=== PATIENT | male | born 1945 | race Caucasian/White ===

== ENCOUNTER 2016-08-28 12:30 | Observation (INO) | payer MEDICARE ==
[2016-08-28] MEDS ORDERED: NS 0.9% 1000 ML* 1,000 ML IV ONE (13:20)
[2016-08-28 13:42] LABS: Hematocrit 40 % (42-52); Hemoglobin 13.2 g/dl (14.0-18.0); Mean Corpuscular HGB Conc 33 g/dl (31-36); Mean Corpuscular Hemoglobin 30 pg (27-31); Mean Corpuscular Volume 90 fL (80-94); Mean Platelet Volume 8 um3 (7.4-10.4); Red Blood Count 4.43 10^6/ul (4.0-5.4); Red Cell Distribution Width 14 % (10.5-15); White Blood Count 7.1 10^3/ul (3.5-10.8)
--- NOTE | 2016-08-28 13:59 | RAD ---
Indication: Pneumonia. Single frontal view of the chest performed at 1350 hours was reviewed. Comparison is made with previous exam dated June 09, 2014. No mediastinal shift is noted. Heart is of normal size and configuration. Lung salmon appear clear. IMPRESSION: NO ACTIVE CARDIOPULMONARY DISEASE IS NOTED.
[2016-08-28 14:01] LABS: Albumin 4.1 g/dL (3.2-5.2); BUN/Creatinine Ratio 8.5 (8-20); Calcium 10.8 mg/dL (8.6-10.3); EGFR African American 78.5 (>60); HDL Cholesterol 38.1 mg/dL; Total Bilirubin 0.5 mg/dL (0.2-1.0); Total Protein 7.1 g/dL (6.4-8.9)
[2016-08-28 14:03] LABS: Troponin I 0.01 ng/mL (<0.04)
[2016-08-28 14:06] LABS: Potassium 3.9 mmol/L (3.5-5.0)
[2016-08-28] MEDS ORDERED: Iohexol 350* (CONTRAST) 500 ML MDV IV ONE (14:06)
--- NOTE | 2016-08-28 14:48 | RAD ---
Indication: Right-sided weakness and headaches. CT of the brain was performed without IV contrast. Comparison is made with previous exam dated June 09, 2014. Ventricular structures are midline. No midline shift is noted. Central and cortical atrophy is noted. Periventricular lucency consistent with chronic ischemic White matter change is noted. Mastoid air cells and paranasal sinuses are otherwise unremarkable. IMPRESSION: Chronic ischemic White matter change without change since June 09, 2014. No intracranial mass or hemorrhage is noted.
--- NOTE | 2016-08-28 15:06 | RAD ---
Indication: Right-sided weakness and headache. CTA of the neck and head was performed after IV contrast administration. A total of Administered 79.9 ml of OMNIPAQUE 350 mgi/ml was given intravenously. Coronal and sagittal reconstructed images were obtained. Atherosclerotic aorta is noted. A tortuous brachiocephalic artery is noted. The right common carotid artery is otherwise unremarkable. The left common carotid artery demonstrates no definite stenosis although evaluation is limited. The study was performed with a left-sided IV contrast to hospital protocol. Bilaterally the common carotid arteries demonstrates no intimal wall thickening. Plaque is noted at the carotid artery bifurcations bilaterally. Scattered calcifications are noted in the right internal carotid artery. The left internal carotid artery demonstrates a 50% stenosis just distal to the bifurcation. The vertebral arteries are otherwise unremarkable. The appear to be symmetric in size. The origins of the vertebral arteries are grossly unremarkable. The intracavernous portion of the internal carotid artery demonstrates mild atherosclerosis. The supracavernous portions of the internal carotid arteries demonstrate no significant stenosis. Normal bifurcation of both internal carotid arteries are noted with normal A1 and M1 segments of the anterior and middle cerebral arteries respectively. No branch occlusion is noted. The vertebral arteries, basilar artery and posterior cerebral arteries demonstrates no evidence of aneurysmal dilatation or branch occlusion. Scattered lymph nodes are noted. No focal masses are identified in the soft tissues of the neck. IMPRESSION: PLAQUE IS NOTED IN THE ORIGINS OF BOTH INTERNAL CAROTID ARTERIES. JUST DISTAL TO THE ORIGIN OF THE LEFT INTERNAL CAROTID ARTERY IS SOFT PLAQUE WITH APPROXIMATELY 50% STENOSIS. NO EVIDENCE OF BRANCH OCCLUSION OR ANEURYSMAL DILATATION IS NOTED. NO EVIDENCE OF CAROTID ARTERY DISSECTION IS NOTED. ORIGINS OF THE GREAT VESSELS ARE LIMITED IN EVALUATION DUE TO LEFT SIDED INTRAVENOUS INJECTION.
[2016-08-28 15:11] LABS: Urine Bilirubin Negative (Negative); Urine Glucose Negative (Negative); Urine Nitrite Negative (Negative)
--- NOTE | 2016-08-28 15:47 | ED ---
Miko Arriaga Michael, scribed for Carlos Iqbal MD on 08/28/16 at 1327 . Neurological HPI - HPI Summary HPI Summary: 71 y/o male comes to the ED presenting with RLE weakness that started this afternoon at 1215. The pt reports that he was dragging his RLE while walking up and down stairs today. His was bedside and states that the episode lasted for 5-10 minutes, and the pt's son notes he had bilat LE tremors during the weakness episode. The RLE weakness was spontaneous resolved prior arriving to the ED. The pt denies SOB, CP, palpitations, slurred speech, and visual changes. The PMHx is significant for multiple hemorrhagic strokes, sz, and HTN. The last stroke was 10 years ago. The pt has no deficits from the strokes. - History of Current Complaint Chief Complaint: EDWeakness Stated Complaint: STROKE LIKE SYMPTOMS Time Seen by Provider: 08/28/16 12:58 Hx Obtained From: Patient, Medical Records Onset/Duration: Sudden Onset, Started hours ago Timing: Constant Onset Severity: Moderate Current Severity: None Pain Intensity: 0 Pain Scale Used: 0-10 Numeric Character: Motor Weakness Aggravating: Nothing Alleviating: Spontanious Resolution Associated Signs and Symptoms: Positive: Negative - SOB. visual changes., Weakness. Negative: Impaired Speech, Chest Pain, Palpitations - Allergy/Home Medications Allergies/Adverse Reactions: Allergies Allergy/AdvReac Type Severity Reaction Status Date / Time No Known Allergies Allergy Verified 06/09/14 06:42 PMH/Surg Hx/FS Hx/Imm Hx Endocrine/Hematology History: Denies: Hx Anticoagulant Therapy, Hx Diabetes, Hx Thyroid Disease Comment Only: Hx Blood Disorders - AMYLOIDOSIS Cardiovascular History: Reports: Hx Hypertension Denies: Hx Pacemaker/ICD Respiratory History: Denies: Hx Asthma, Hx Chronic Obstructive Pulmonary Disease (COPD) History: Reports: Hx Benign Prostatic Hyperplasia - HAS TROUBLE INNITIATING, AND HAS ISSUES WITH DRIBBLING Denies: Hx Renal Disease Comment Only: Other Problems/Disorders - RECENTLY BEEN IN TO SEE DR SOMMER. Sensory History: Reports: Hx Contacts or Glasses - READING, NOT WITH PT. Opthamlomology History: Reports: Hx Contacts or Glasses - READING, NOT WITH PT. Neurological History: Reports: Hx CVA, Hx Seizures Denies: Hx Dementia Psychiatric History: Denies: Hx Substance Abuse Comment Only: Hx Anxiety - PT APPEARS SOME WHAT ANXIOUS ON ADMISSION, ADMITS TO STRESSORS Infectious Disease History: No Infectious Disease History: Denies: Hx Hepatitis, Hx Human Immunodeficiency Virus (HIV), Traveled Outside the [place] in Last 30 Days - Family History Known Family History: Positive: Hypertension, Diabetes, Other - Colon Cancer - Social History Occupation: Retired Lives: With Family Alcohol Use: None Substance Use Type: Reports: None Smoking Status (MU): Never Smoked Tobacco Review of Systems Negative: Fever Negative: Blurred Vision, Diplopia Negative: Palpitations, Chest Pain Negative: Shortness Of Breath Positive: Other - bilat LE tremors Positive: Weakness - RLE. Negative: Slurred Speech All Other Systems Reviewed And Are Negative: Yes Physical Exam - Summary Physical Exam Summary: The patient is well-nourished in no acute distress and in no acute pain. The skin is warm and dry and skin color reflects adequate perfusion with good turgor. HEENT: The head is normocephalic and atraumatic. The pupils are equal and reactive. The conjunctivae are clear and without drainage. Nares are patent and without drainage. Mouth reveals moist mucous membranes and the throat is without erythema and exudate. The external ears are intact. The ear canals are patent and without drainage. The tympanic membranes are intact. Neck is supple with full range of motion and non-tender. There are no carotid bruits. There is no neck vein distension. Respiratory: Chest is non-tender. Lungs are clear to auscultation and breath sounds are symmetrical and equal. Cardiovascular: Hear is regular rate and rhythm. There is no murmur or rub auscultated. There is no peripheral edema and pulses are symmetrical and equal. Abdomen: The abdomen is soft and non-tender. There are normal bowel sounds heard in all four quadrants and there is no organomegaly palpated. Musculoskeletal: There is no back pain noted. Extremities are non-tender with full range of motion. There is good capillary refill. There is no peripheral edema or calf tenderness elicited. Neurological: Patient is alert and not oriented to time. The patient has symmetrical motor strength in all four extremities. Cranial nerves are grossly intact. Deep tendon reflexes are symmetrical and equal in all four extremities. Tongue is midline and there is no facial droop. Negative pronator drift in upper and lower extremities. No noted weakness is appreciated and negative babinski. The patient had difficulty following commands. He had no visual field loss or slurred speech. Psychiatric: The patient has an appropriate affect and does not exhibit any anxiety or depression. Triage Information Reviewed: Yes Vital Signs On Initial Exam: Initial Vitals Temp Pulse Resp BP Pulse Ox 97.7 F 61 17 136/77 97 08/28/16 12:45 08/28/16 12:45 08/28/16 12:45 08/28/16 12:45 08/28/16 12:45 Vital Signs Reviewed: Yes Diagnostics - Vital Signs Vital Signs Temp Pulse Resp BP Pulse Ox 08/28/16 12:45 97.7 F 61 17 136/77 97 - Laboratory Lab Results: Lab Results 08/28/16 08/28/16 08/28/16 Range/Units 13:30 13:30 13:30 WBC 7.1 (3.5-10.8) 10^3/ul RBC 4.43 (4.0-5.4) 10^6/ul Hgb 13.2 L (14.0-18.0) g/dl Hct 40 L (42-52) % MCV 90 (80-94) fL MCH 30 (27-31) pg MCHC 33 (31-36) g/dl RDW 14 (10.5-15) % Plt Count 287 (150-450) 10^3/ul MPV 8 (7.4-10.4) um3 Neut % (Auto) 60.1 (38-83) % Lymph % (Auto) 28.9 (25-47) % [place] % (Auto) 6.9 (1-9) % Eos % (Auto) 3.0 (0-6) % Baso % (Auto) 1.1 (0-2) % Absolute Neuts (auto) 4.3 (1.5-7.7) 10^3/ul Absolute Lymphs (auto) 2.1 (1.0-4.8) 10^3/ul Absolute Monos (auto) 0.5 (0-0.8) 10^3/ul Absolute Eos (auto) 0.2 (0-0.6) 10^3/ul Absolute Basos (auto) 0.1 (0-0.2) 10^3/ul Absolute Nucleated RBC 0 10^3/ul Nucleated RBC % 0 INR (Anticoag Therapy) 0.93 (0.89-1.11) Sodium 137 (133-145) mmol/L Potassium 3.9 (3.5-5.0) mmol/L Chloride 101 (101-111) mmol/L Carbon Dioxide 32 (22-32) mmol/L Anion Gap 4 (2-11) mmol/L BUN 10 (6-24) mg/dL Creatinine 1.18 H (0.67-1.17) mg/dL Est GFR ( Amer) 78.5 (>60) Est GFR (Non-Af Amer) 61.0 (>60) BUN/Creatinine Ratio 8.5 (8-20) Glucose 94 (70-100) mg/dL Lactic Acid (0.5-2.0) mmol/L Calcium 10.8 H (8.6-10.3) mg/dL Total Bilirubin 0.50 (0.2-1.0) mg/dL AST 20 (13-39) U/L ALT 12 (7-52) U/L Alkaline Phosphatase 55 (34-104) U/L Troponin I 0.01 (<0.04) ng/mL Total Protein 7.1 (6.4-8.9) g/dL Albumin 4.1 (3.2-5.2) g/dL Globulin 3.0 (2-4) g/dL Albumin/Globulin Ratio 1.4 (1-3) Triglycerides 214 mg/dL Cholesterol 213 mg/dL LDL Cholesterol 132 mg/dL HDL Cholesterol 38.1 mg/dL Urine Color Urine Appearance Urine pH (5-9) Ur Specific [place] (1.010-1.030) Urine Protein (Negative) Urine Ketones (Negative) Urine Blood (Negative) Urine Nitrate (Negative) Urine Bilirubin (Negative) Urine Urobilinogen (Negative) Ur Leukocyte Esterase (Negative) Urine Glucose (Negative) 08/28/16 08/28/16 Range/Units 13:30 14:50 WBC (3.5-10.8) 10^3/ul RBC (4.0-5.4) 10^6/ul Hgb (14.0-18.0) g/dl Hct (42-52) % MCV (80-94) fL MCH (27-31) pg MCHC (31-36) g/dl RDW (10.5-15) % Plt Count (150-450) 10^3/ul MPV (7.4-10.4) um3 Neut % (Auto) (38-83) % Lymph % (Auto) (25-47) % [place] % (Auto) (1-9) % Eos % (Auto) (0-6) % Baso % (Auto) (0-2) % Absolute Neuts (auto) (1.5-7.7) 10^3/ul Absolute Lymphs (auto) (1.0-4.8) 10^3/ul Absolute Monos (auto) (0-0.8) 10^3/ul Absolute Eos (auto) (0-0.6) 10^3/ul Absolute Basos (auto) (0-0.2) 10^3/ul Absolute Nucleated RBC 10^3/ul Nucleated RBC % INR (Anticoag Therapy) (0.89-1.11) Sodium (133-145) mmol/L Potassium (3.5-5.0) mmol/L Chloride (101-111) mmol/L Carbon Dioxide (22-32) mmol/L Anion Gap (2-11) mmol/L BUN (6-24) mg/dL Creatinine (0.67-1.17) mg/dL Est GFR ( Amer) (>60) Est GFR (Non-Af Amer) (>60) BUN/Creatinine Ratio (8-20) Glucose (70-100) mg/dL Lactic Acid 1.3 (0.5-2.0) mmol/L Calcium (8.6-10.3) mg/dL Total Bilirubin (0.2-1.0) mg/dL AST (13-39) U/L ALT (7-52) U/L Alkaline Phosphatase (34-104) U/L Troponin I (<0.04) ng/mL Total Protein (6.4-8.9) g/dL Albumin (3.2-5.2) g/dL Globulin (2-4) g/dL Albumin/Globulin Ratio (1-3) Triglycerides mg/dL Cholesterol mg/dL LDL Cholesterol mg/dL HDL Cholesterol mg/dL Urine Color Yellow Urine Appearance Cloudy Urine pH 7.0 (5-9) Ur Specific [place] 1.033 H (1.010-1.030) Urine Protein Negative (Negative) Urine Ketones Negative (Negative) Urine Blood Negative (Negative) Urine Nitrate Negative (Negative) Urine Bilirubin Negative (Negative) Urine Urobilinogen Negative (Negative) Ur Leukocyte Esterase Negative (Negative) Urine Glucose Negative (Negative) Result Diagrams: 08/28/16 13:30 08/28/16 13:30 Lab Statement: Any lab studies that have been ordered have been reviewed, and results considered in the medical decision making process. - Radiology CXR Xray Interpretation: No Acute Changes Radiology Interpretation Completed By: Radiologist - CT Brain CT CT Interpretation: Positive (See Comments) - Chronic ischemic White matter change without change since June 09, 2014. No intracranial mass or hemorrhage is noted. CT Interpretation Completed By: Radiologist CTA Head CT Interpretation: Positive (See Comments) - PLAQUE IS NOTED IN THE ORIGINS OF BOTH INTERNAL CAROTID ARTERIES. JUST DISTAL TO THE ORIGIN OF THE LEFT INTERNAL CAROTID ARTERY IS SOFT PLAQUE WITH APPROXIMATELY 50% STENOSIS. NO EVIDENCE OF BRANCH OCCLUSION OR ANEURYSMAL DILATATION IS NOTED. NO EVIDENCE OF CAROTID ARTERY DISSECTION IS NOTED. ORIGINS OF THE GREAT VESSELS ARE LIMITED IN EVALUATION DUE TO LEFT SIDED INTRAVENOUS INJECTION CT Interpretation Completed By: Radiologist - EKG EK Cardiac Rate: Bradycardia EKG Interpretation: non specific st changes with artifact. no a-fib EK Cardiac Rate: Bradycardia - 58 bpm EKG Interpretation: non-specific ST changes. no a-fib. NIH Scale - NIH Scale Level of Consciousness: Alert/Keenly Responsive Ask Patient the Month and His/Her Age: [age] Correct/Not Aphasic Ask Pt to Open/Close Eyes and Bingo Attendant/Release Non-Paretic Hand: Both Correctly Best Gaze (Only Horizontal Eye Movement): Normal Visual Field Testing: No Visual Loss Facial Paresis-Pt to Smile & Close Eyes or Grimace Symmetry: Normal/Symmetrical Motor Function - Right Arm: No Drift-Holds 10 Seconds Motor Function - Left Arm: No Drift-Holds 10 Seconds Motor Function - Right Leg: No Drift-Holds 10 Seconds Motor Function - Left Leg: No Drift-Holds 10 Seconds Limb Ataxia-Must be out of Proportion to Weakness Present: Absent Sensory (Use Pinprick to Test Arms/Legs/Trunk/Face): Normal Best Language (Describe Picture, Name Items): No Aphasia Dysarthria (Read Several Words): Normal Extinction and Inattention: No Abnormality Total Score: 1 Re-Evaluation - Re-Evaluation 1st Re-Evaluation Time: 13:32 Change: Unchanged Comment: consulted with patient about course of treatment Course/Dx - Course Course Of Treatment: consulted Dr. Jara (Neurology) at 1328-Dr. Jara wants CTA Head and Brain CT. The pt will be admitted for observation unless imaging results dictate otherwise. Spoke with Dr. Le (Hospitalist) 1430-pt will be accepted as an admission and dx with TIA. - Differential Dx Differential Diagnoses Neuro: Positive: Cerebrovascular Accident, Coronary Artery Disease, Dysrhythmia, Hypoglycemia, Metabolic Abnormality, Transient Ischemic Attack, Other - hemmorhagic CVA - Diagnoses Provider Diagnoses: TIA (transient ischemic attack) - Physician Notifications Instructed by Provider To: Admit As Observation Discharge - Discharge Plan Condition: Stable Disposition: ADMITTED TO [facility] Discharge Disposition Comment: Dr. Le accepts the pt as an admission Referrals: Jayce Decker MD [Primary Care Provider] - The documentation as recorded by the Miko calderon Michael accurately reflects the service I personally performed and the decisions made by me, Carlos Iqbal MD.
[2016-08-28] MEDS ORDERED: busPIRone TAB* 10 MG PO SCH (18:00)
--- NOTE | 2016-08-28 19:29 | CONS ---
CC: Dr. Jayce Decker; Dr. Patton NEUROLOGY CONSULT REPORT: DATE OF CONSULT: 08/28/16 PRIMARY CARE PHYSICIAN: Dr. Jayce Decker. NEUROLOGIST: Dr. Patton. REQUESTING PHYSICIANS: Dr. Iqbal and Dr. Webster. REASON FOR CONSULT: Possible TIA. HISTORY OF PRESENT ILLNESS: The patient is a 71-year-old right-handed male, who about an hour before presentation to the emergency room was noted by his family that while walking he drags his left leg and also tilted towards the left side while walking. This lasted for about half an hour and by the time he arrived at the ED, the symptoms were resolved. The patient seems have been sustaining a cognitive function decline specially since his intraparenchymal hemorrhages (as stated below in PMH) in 2011. He also reports that his left visual field has been affected by his intraparenchymal hemorrhages. He has been under care of Dr. Patton who had a suspicion for amyloid angiopathy and seems for that reason was taken off antiplatelets by Dr. Patton. He has been on Aricept probably in the past 3 years. PAST MEDICAL HISTORY: 1. History of three episodes of intraparenchymal hemorrhage; first one in 2002 complicated by partial seizures with secondary generalization, the next one in August 2011 in the left occipital region, and the third one in May 2012 with again left occipital hemorrhage. 2. Partial seizure with secondary generalization. The last generalized seizure was about 3 years ago and he is currently well controlled on brand name of Lamictal. 3. Hyperlipidemia. 4. Hypertension. 5. Renal stone. PAST SURGICAL HISTORY: None. MEDICATIONS: Include: 1. Lamictal, brand name, 200 mg p.o. b.i.d. 2. BuSpar 10 mg q.a.m. and 5 mg q.p.m. 3. Dyazide 1 capsule 37.5/25 mg p.o. daily. 4. Metoprolol 50 mg p.o. daily. 5. Aricept 10 mg p.o. daily. 6. Vitamin D 1000 units p.o. daily. ALLERGIES: No known drug allergies. FAMILY HISTORY: His father had a history of CO at age 75. Paternal grandmother had a history of stroke at age 84. SOCIAL HISTORY: He does not smoke or drink alcohol. 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 REVIEW OF SYSTEMS: Complete review of systems was performed and other than what mentioned above is negative. PHYSICAL EXAM: Blood pressure 143/72, pulse rate 61, respiratory rate 20, and O2 sat 97% on room air. The patient is awake, alert, and oriented to year but not month (he says it is August) and not to the date, but he knows the day of the week. He is able to name the months of the year forward, but in naming them backwards he can go up to the middle and then has frequent mistakes. The patient sometimes has difficulty in following commands. His speech is fluent, but in naming he has occasionally paraphasic errors. Cranial Nerves: The patient reports visual field deficit as a result of previous hemorrhagic strokes, but currently on exam no clear visual field cut was detected by confrontation. Pupils are symmetric and reactive to light. Extraocular movements are intact. Face is symmetric. V1 to V3 is intact to light touch and pinprick. Strength is 5/5 throughout. His sensation is decreased to pinprick in the right upper and lower extremities which is chronic. [id number] shows slight action tremor but no dysmetria. Rapid alternative movements are intact. Babinski is negative bilaterally. Heel-to- payan is intact bilaterally. Gait is narrow based and steady. DIAGNOSTIC STUDIES/LAB DATA: WBC 7.1, hemoglobin 13.2, hematocrit 40, platelets 287. Sodium 137, potassium 3.9, BUN 10, creatinine 1.18. Urine is negative. INR is 0.93. Imaging: A CT of the brain shows chronic ischemic white matter changes without change since 06/09/[address] angiogram of the head shows plaque in both internal carotid arteries just distal to the origine of the left internal carotid artery soft plaque with approximately 50% stenosis. No evidence of branch occlusion or aneurysmal dilation. Origins of the great vessels are limited on evaluation. ASSESSMENT AND PLAN: The patient is a 71-year-old male with history of questionable left-sided weakness earlier today which resolved. He has history of 3 intraparenchymal hemorrhages, the last 2 in 2011. He might have a microangiopathy such as amyloid angiopathy. His cognitive function seems to be affected by those hemorrhagic insults. Today's episode might have been a transient ischemic attack. However, start of antiplatelet in the setting of possibly amyloid angiopathy should be with caution because of risk of hemorrhage , but is not contraindicated. I suggest to obtain an MRI of the brain. He should be monitored on telemonitoring and echo of the heart will be obtained. If an evidence of ischemic stroke is seen in MRI, then he may benefit from antiplatelet and it may justify the benefits over risks. [id number]/[facility]PS #: [id number] MTDD
[2016-08-28] MEDS: busPIRone TAB* 10 MG PO SCH (20:26)
[2016-08-28] MEDS ORDERED: LAMICTAL 200 MG PO SCH (21:00)
--- NOTE | 2016-08-28 21:07 | HP ---
HISTORY AND PHYSICAL:* ADDENDUM: Mr. Pickard is a 71-year-old male with history of two intracranial hemorrhage, one in 2002 and one in 2011, who presents complaining of symptoms of TIA. The patient is neurologically intact at admission time and his deficits resolved. He is going to be admitted to telemetry monitoring floor, monitored. Neurology will see the patient in consultation. For further details of the patient's plan, please see history and physical dictated by Yokasta Mary NP, on 08/28/16 with which I agree. JEREMY PEÑ[place] [id number]/[facility] #: [id number] SONYA
--- NOTE | 2016-08-28 21:57 | HP ---
ATTENDING ADDENDUM INCLUDED ON THIS REPORT HISTORY AND PHYSICAL: DATE OF ADMISSION: 08/28/16 PRIMARY CARE PROVIDER: Dr. Jayce Decker. ATTENDING PHYSICIAN: Dr. Debbie Webster *(dictated by Lisandra Mary, BHUPENDRA). CHIEF COMPLAINT: Difficulty ambulating with left-sided weakness. HISTORY OF PRESENT ILLNESS: Mr. Pickard is a 71-year-old male with past medical history significant for 2 past hemorrhagic strokes with the last one in 2011, hyperlipidemia, kidney stones who presented to the emergency room with complaints with difficulty ambulating after falling to his side while at an event with his family. The patient denies any fevers, chills, chest pain, shortness of breath, cough, nausea, vomiting and diarrhea. The patient denies any recent cold symptoms. The patient denies any slurred speech or facial drooping. Based off of concerns the patient's past history of hemorrhagic strokes, his family brought him to the emergency room for further evaluation of his symptoms. While in the emergency room, the patient was seen in consultation with Dr. Jara with Neurology who requested a CTA of the head and brain CT and plan was made to admit the patient for observation. The patient had a brain CT scan showing chronic ischemic white matter change without change since May of 2014. There was no intracranial mass or hemorrhage noted. The patient had a chest x-ray showing no acute cardiopulmonary disease. The patient also had a CTA of his head showing plaque noted in the origins of both internal carotid arteries. Just distally to the origin of the left internal carotid artery, there is a soft plaque with approximately 50% stenosis. No evidence of branch occlusion or aneurysm dilation noted. No evidence of carotid artery dissection noted. The origin of the great vessels are limited in the evaluation to the left side to intravenous injection. Hospitalist Medicine was asked to evaluate the patient for admission. The patient's symptoms had resolved prior to his arrival to the emergency room. PAST MEDICAL HISTORY: 1. Hyperlipidemia. 2. Kidney stones. 3. Hypertension. 4. Amyloid angiopathy. 5. History of left intracerebellar hemorrhage in 2002. 6. History of occipital hemorrhage in 2011. PAST SURGICAL HISTORY: None. MEDICATIONS: Include: 1. Lamictal 200 mg oral daily. 2. Dyazide 37.5/25 one capsule oral daily. 3. BuSpar 5 mg oral every morning. 4. BuSpar 10 mg oral every evening. 5. Vitamin D 1000 units oral daily. 6. Aricept 10 mg oral daily. 7. Metoprolol tartrate 50 mg oral daily. HOME MEDICATIONS: 1. Metoprolol succinate XL 25 mg oral daily. 2. Metoprolol succinate XL 50 mg daily. 3. Lamictal 200 mg oral every morning. 4. Lamictal 300 mg oral daily at bedtime. 5. BuSpar 10 mg oral twice daily. 6. Aricept 10 mg oral daily. 7. Vitamin D3 1000 units oral daily. 8. Dyazide 37.5/25 one capsule oral daily. ALLERGIES: No known drug allergies. FAMILY HISTORY: The patient's father passed at age 75 with a history of heart disease. The patient had a grandmother who had a stroke and has not had a history of cancer. SOCIAL HISTORY: The patient is a former smoker, quitting approximately 14 years ago. He denies recreational drug use or alcohol use. He is and lives with his , Vanna Pickard, who will be his surrogate decision maker in the event he is unable to make decisions for himself. REVIEW OF SYSTEMS: I performed a 14-point review of systems. All the pertinent positives and negatives are mentioned in the history of present illness. The remaining review of systems are negative. PHYSICAL EXAMINATION GENERAL APPEARANCE: The patient is alert, pleasant, appears to be in no acute distress. VITAL SIGNS: Temperature 97.7, heart rate 55, respiratory rate 13, O2 sat 96% on room air, blood pressure 129/67. HEENT: Normocephalic, atraumatic. Pupils equal and reactive to light. Extraocular movements intact. NECK: Supple. There is no lymphadenopathy noted. RESPIRATORY: There is no accessory muscle use and the lungs are clear to auscultation. CARDIOVASCULAR: Regular rate and rhythm. S1 and S2 present. There are no murmurs, rubs, or gallops heard. ABDOMEN: Soft, nontender, and nondistended. There are bowel sounds present x4. EXTREMITIES: There is no lower extremity edema. DP and PT pulses are 2+ and symmetric. MUSCULOSKELETAL: There is no clubbing or cyanosis noted. The patient exhibits good strength in all extremities. NEUROLOGIC: The patient is alert and oriented x4. He does have some difficulty with word finding more so using the incorrect word than saying words such as calling his left foot his right foot. Cranial nerves II through XII are grossly intact. The patient has equal strength in all extremities. The patient is able to move his heel from ankle to knee bilateral. The patient is able to do finger-to- nose bilateral without difficulty. PSYCHOLOGICAL: The patient is calm and cooperative. SKIN: There are no rashes or abnormalities seen. DIAGNOSTIC STUDIES/LABORATORY DATA: Sodium 137, potassium 3.7, chloride 101, CO2 32, BUN 16, creatinine 1.18, glucose 94. Troponin 0.01. White blood cell count 7.1, hemoglobin 13.2, hematocrit 40, platelet count 287. Urinalysis is significant for specific gravity of 1.033. Rest is negative. EKG shows a sinus donta with a rate of 58. There is no acute signs of ischemia and this EKG is similar to previous EKG from 06/09/14. 1. Brain CT from today, radiologist impression: Chronic ischemic white matter change without change since 06/09/14. No intracranial mass or hemorrhage is noted. 2. Chest x-ray on 08/28/16. Radiologist Impression: No active cardiopulmonary disease is noted. 3. Head CTA from today. Radiologist Impression: Plaque is noted in the origins of both intracranial carotid arteries. Just distal to the origin of the left internal carotid artery is soft plaque with approximately 50% stenosis. No evidence of branch occlusion or aneurysmal dilation is noted. No evidence of carotid artery dissection is noted. Origins of the great vessels are limited in evaluation due to left-sided intravenous injection. IMPRESSION: Mr. Pickard is a 71-year-old male with past medical history significant for 2 prior hemorrhagic strokes, hyperlipidemia, hypertension who presents to the emergency room with concern for left-sided weakness that had resolved prior to his arrival to the emergency. He will be admitted as an observation for transient ischemic attack. ASSESSMENT: 1. Left-sided weakness. Suspect this was a transient ischemic attack. His symptoms have resolved. CT scan shows no hemorrhage or signs of stroke at this time. We will check an MRI in the morning. The patient will have neuro checks , will be monitored on telemetry. At this time, we will hold on giving the patient aspirin as in the past, he has had a history of hemorrhagic stroke. We will check fasting lipid panel in the morning. 2. History of Seizures. The patient will be placed on seizure precautions. Will also get a Lamictal level. 3. Hypertension. At this time, the patient's blood pressures are controlled. We will continue his metoprolol succinate, but hold his Dyazide to allow for permissive hypertension. 4. Dementia. The patient will be continued on his home Aricept. 5. Elevated creatinine. The patient looks to be slightly on the dry side. He received IV hydration in the emergency room, we will check his creatinine in the morning. 6. Fluids, electrolytes, and nutrition. The patient will be on a heart healthy diet. 7. Code status. Full code. 8. DVT prophylaxis. The patient is at highest risk due to his history of hemorrhagic stroke. We will hold on chemical DVT prophylaxis. The patient will have SCDs. 9. Disposition. Observation. TIME SPENT: The time for this admission was 60 minutes, 35 minutes were spent face- to-face with the patient discussing past medical history, medications, and the events leading up to his arrival today and performing physical examination. The case has been reviewed with the attending, Dr. Webster, who agrees with the plan of care. Reviewed by LISANDRA MARY, SANTIAGO-Shlomo 08/31/161956 ADDENDUM: Mr. Pickard is a 71-year-old male with history of two intracranial hemorrhage, one in 2002 and one in 2011, who presents complaining of symptoms of TIA. The patient is neurologically intact at admission time and his deficits resolved. He is going to be admitted to telemetry monitoring floor, monitored. Neurology will see the patient in consultation. For further details of the patient's plan , please see history and physical dictated by Lisandra Mary NP, on 08/28/16 with which I agree. DEBBIE WEBSTER MD CC: Jayce Decker MD * [id number] #: [id number] #: [id number] #: [id number] MTDStarla
--- NOTE | 2016-08-28 22:05 | HP ---
HISTORY AND PHYSICAL:* ADDENDUM: HOME MEDICATIONS: 1. Metoprolol succinate XL 25 mg oral daily. 2. Metoprolol succinate XL 50 mg daily. 3. Lamictal 200 mg oral every morning. 4. Lamictal 300 mg oral daily at bedtime. 5. BuSpar 10 mg oral twice daily. 6. Aricept 10 mg oral daily. 7. Vitamin D3 1000 units oral daily. 8. Dyazide 37.5/25 one capsule oral daily. ALLERGIES: No known drug allergies. FAMILY HISTORY: The patient's father passed at age 75 with a history of heart disease. The patient had a grandmother who had a stroke and has not had a history of cancer. SOCIAL HISTORY: The patient is a former smoker, quitting approximately 14 years ago. He denies recreational drug use or alcohol use. He is and lives with his , Vanna Pickard, who will be his surrogate decision maker in the event he is unable to make decisions for himself. REVIEW OF SYSTEMS: I performed a 14-point review of systems. All the pertinent positives and negatives are mentioned in the history of present illness. The remaining review of systems are negative. PHYSICAL EXAMINATION GENERAL APPEARANCE: The patient is alert, pleasant, appears to be in no acute distress. VITAL SIGNS: Temperature 97.7, heart rate 55, respiratory rate 13, O2 sat 96% on room air, blood pressure 129/67. HEENT: Normocephalic, atraumatic. Pupils equal and reactive to light. Extraocular movements intact. NECK: Supple. There is no lymphadenopathy noted. RESPIRATORY: There is no accessory muscle use and the lungs are clear to auscultation. CARDIOVASCULAR: Regular rate and rhythm. S1 and S2 present. There are no murmurs, rubs, or gallops heard. ABDOMEN: Soft, nontender, and nondistended. There are bowel sounds present x4. EXTREMITIES: There is no lower extremity edema. DP and PT pulses are 2+ and symmetric. MUSCULOSKELETAL: There is no clubbing or cyanosis noted. The patient exhibits good strength in all extremities. NEUROLOGIC: The patient is alert and oriented x4. He does have some difficulty with word finding more so using the incorrect word than saying words such as calling his left foot his right foot. Cranial nerves II through XII are grossly intact. The patient has equal strength in all extremities. The patient is able to move his heel from ankle to knee bilateral. The patient is able to do finger-to- nose bilateral without difficulty. PSYCHOLOGICAL: The patient is calm and cooperative. SKIN: There are no rashes or abnormalities seen. DIAGNOSTIC STUDIES/LABORATORY DATA: Sodium 137, potassium 3.7, chloride 101, CO2 32, BUN 16, creatinine 1.18, glucose 94. Troponin 0.01. White blood cell count 7.1, hemoglobin 13.2, hematocrit 40, platelet count 287. Urinalysis is significant for specific gravity of 1.033. Rest is negative. EKG shows a sinus donta with a rate of 58. There is no acute signs of ischemia and this EKG is similar to previous EKG from 06/09/14. Brain CT from today, radiologist impression: Chronic ischemic white matter change without change since . No intracranial mass or hemorrhage is noted. Chest x-ray on 08/28/16. Radiologist Impression: No active cardiopulmonary disease is noted. Head CTA from today. Radiologist Impression: Plaque is noted in the origins of both intracranial carotid arteries. Just distal to the origin of the left internal carotid artery is soft plaque with approximately 50% stenosis. No evidence of branch occlusion or aneurysmal dilation is noted. No evidence of carotid artery dissection is noted. Origins of the great vessels are limited in evaluation due to left-sided intravenous injection. IMPRESSION: Mr. Pickard is a 71-year-old male with past medical history significant for 2 prior hemorrhagic strokes, hyperlipidemia, hypertension who presents to the emergency room with concern for left-sided weakness that had resolved prior to his arrival to the emergency. He will be admitted as an observation for transient ischemic attack. ASSESSMENT: 1. Left-sided weakness. Suspect this was a transient ischemic attack. His symptoms have resolved. CT scan shows no hemorrhage or signs of stroke at this time. We will check an MRI in the morning. The patient will have neuro checks , will be monitored on telemetry. At this time, we will hold on giving the patient aspirin as in the past, he has had a history of hemorrhagic stroke. We will check fasting lipid panel in the morning. 2. . The patient will be placed on seizure precautions. Will also get a Lamictal level. 3. Hypertension. At this time, the patient's blood pressures are controlled. We will continue his metoprolol succinate, but hold his Dyazide to allow for permissive hypertension. 4. Dementia. The patient will be continued on his home Aricept. 5. Elevated creatinine. The patient looks to be slightly on the dry side. He received IV hydration in the emergency room, we will check his creatinine in the morning. 6. Fluids, electrolytes, and nutrition. The patient will be on a heart healthy diet. 7. Code status. Full code. 8. DVT prophylaxis. The patient is at highest risk due to his history of hemorrhagic stroke. We will hold on chemical DVT prophylaxis. The patient will have SCDs. 9. Disposition. Observation. TIME SPENT: The time for this admission was 60 minutes, 35 minutes were spent face- to-face with the patient discussing past medical history, medications, and the events leading up to his arrival today and performing physical examination. The case has been reviewed with the attending, Dr. Webster, who agrees with the plan of care. LISANDRA ARTEAGA, BHUPENDRA [id number]/[facility] #: [id number] SONYA
[2016-08-29 06:57] LABS: BUN/Creatinine Ratio 9.2 (8-20); Calcium 9.8 mg/dL (8.6-10.3); EGFR Non-African American 59.9 (>60); HDL Cholesterol 33.6 mg/dL; Potassium 3.8 mmol/L (3.5-5.0)
--- NOTE | 2016-08-29 08:39 | RAD ---
HISTORY: Left-sided weakness COMPARISONS: Head CT dated August 28, 2016, MRI dated September 19, 2011 TECHNIQUE: The following sequences were obtained of the head: Sagittal T1-weighted images, axial T2-weighted images, axial FLAIR images, axial susceptibility weighted images, axial T1-weighted images. Additionally, axial diffusion-weighted images were obtained with calculated apparent diffusion coefficients. FINDINGS: HEMORRHAGE/INFARCT: There is no acute hemorrhage or acute infarct. MASSES/SHIFT: There is no mass or shift. EXTRA-AXIAL SPACES/MENINGES: There are no extra-axial fluid collections. SULCI AND VENTRICLES: There is diffuse and proportional enlargement of the sulci and ventricles. CEREBRUM: There is encephalomalacia of the left parietal lobe consistent with remote infarct. There is diffusely elevated T2/STIR signal in the periventricular and subcortical white matter. There are innumerable punctate foci susceptibility artifact. BRAINSTEM: There are no focal parenchymal abnormalities. CEREBELLUM: There are innumerable punctate foci of susceptibility artifact. The cerebellar tonsils are normal in size and position. SELLA: The sella is normal. PINEAL: The pineal region is clear. CP ANGLE/TEMPORAL BONES: The labyrinthine structures are grossly normal. VESSELS: Normal flow-voids are noted within the visualized vertebral vasculature. DIFFUSION ABNORMALITIES: There are no diffusion abnormalities. PARANASAL SINUSES/MASTOIDS: The paranasal sinuses are clear. ORBITS: The orbits are unremarkable. BONES AND SOFT TISSUE: No bone or soft tissue abnormalities are noted. OTHER: None IMPRESSION: 1. NO RESTRICTED DIFFUSION TO SUGGEST ACUTE INFARCT. 2. 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 3. DIFFUSE INVOLUTIONAL CHANGE WITH CHRONIC VESSEL ISCHEMIC CHANGES. 4. INNUMERABLE FOCI OF SUSCEPTIBILITY ARTIFACT, SUGGESTIVE OF CHRONIC MICROHEMORRHAGE IN THE SETTING OF CHRONIC UNTREATED HYPERTENSION OR AMYLOID ANGIOPATHY
[2016-08-29] MEDS ORDERED: lamoTRIgine TAB(*) 100 MG PO SCH (09:00)
[2016-08-29] MEDS ORDERED: Cholecalciferol TAB* 1000 UNITS PO SCH (09:00)
[2016-08-29] MEDS ORDERED: Metoprolol Succinate XL TAB* 25 MG PO SCH (09:00)
[2016-08-29] MEDS ORDERED: Metoprolol Succinate XL TAB* 50 MG PO SCH (09:00)
[2016-08-29] MEDS ORDERED: LAMICTAL 200 MG PO SCH (09:00)
[2016-08-29] MEDS ORDERED: Donepezil TAB* 5 MG PO SCH (09:00)
[2016-08-29] MEDS ORDERED: busPIRone TAB* 5 MG PO SCH (09:00)
[2016-08-29] MEDS ORDERED: Metoprolol Tartrate TAB* 50 mg PO SCH (09:00)
[2016-08-29] MEDS: busPIRone TAB* 10 MG PO SCH (10:26)
[2016-08-29 13:31] VITALS: BP 127/72
--- NOTE | 2016-08-29 14:27 | PN ---
Subjective Date of Service: 08/29/16 Interval History: Patient seen and examined at bedside. His is also present. He denies dizziness, chest pain, SOB, abd pain, difficulty with speech. He denies left sided weakness and reports walking around. His notes some memory changes that are close to baseline; she feels that his being in the hospital is likely contributing to his disorientation. However, she feels that he is at his baseline in terms of speech and ambulation and is hopeful that he may come home. Telemetry: SR 60s Family History: Unchanged from Admission Social History: Unchanged from Admission Past Medical History: Unchanged from Admission Objective Active Medications: Buspirone HCl (Buspar Tab*) 10 mg PO BID [facility] Last Admin: 08/29/16 10:26 Dose: 10 mg Cholecalciferol (Vitamin D Tab*) 1,000 units PO DAILY [facility] Last Admin: 08/29/16 10:27 Dose: 1,000 units Donepezil HCl (Aricept Tab*) 10 mg PO DAILY [facility] Last Admin: 08/29/16 10:30 Dose: 10 mg Metoprolol Succinate (Toprol Xl Tab*) 25 mg PO DAILY [facility] Last Admin: 08/29/16 10:36 Dose: 25 mg Metoprolol Succinate (Toprol Xl Tab*) 50 mg PO DAILY [facility] Last Admin: 08/29/16 10:36 Dose: 50 mg Pto: Lamictal (Brand Lamotrigine) 200 Mg Tablets 300 mg PO BEDTIME [facility] Last Admin: 08/28/16 20:26 Dose: 300 mg Pto: Lamictal (Brand Lamotrigine) 200mg Tablets 1 dose PO QAM [facility] Last Admin: 08/29/16 10:36 Dose: 1 dose Vital Signs 08/28/16 08/28/16 08/28/16 15:00 15:30 16:00 Temperature Pulse Rate 56 53 Respiratory 21 15 Rate Blood Pressure 155/86 148/80 127/67 (mmHg) O2 Sat by Pulse 97 99 Oximetry 08/28/16 08/28/16 08/28/16 16:30 17:37 17:39 Temperature 97.3 F Pulse Rate 54 56 Respiratory 13 16 Rate Blood Pressure 129/67 147/65 (mmHg) O2 Sat by Pulse 96 97 97 Oximetry 01/29/17 01/29/17 01/30/17 20:27 23:28 03:50 Temperature 97.3 F 98.9 F 98.0 F Pulse Rate 61 57 60 Respiratory 14 16 16 Rate Blood Pressure 120/61 113/67 126/64 (mmHg) O2 Sat by Pulse 97 96 93 Oximetry 08/29/16 08/29/16 08/29/16 07:37 08:00 13:27 Temperature 98.4 F 97.3 F Pulse Rate 57 53 Respiratory 16 17 16 Rate Blood Pressure 130/70 127/72 (mmHg) O2 Sat by Pulse 95 94 Oximetry 08/29/16 13:30 Temperature 97.3 F Pulse Rate 53 Respiratory 16 Rate Blood Pressure 127/72 (mmHg) O2 Sat by Pulse 94 Oximetry Oxygen Devices in Use Now: None Appearance: Male patient, sitting up in bed, in NAD Eyes: PERRLA Ears/Nose/Mouth/Throat: Clear Oropharnyx, Mucous Membranes Moist Neck: NL Appearance and Movements; NL JVP Respiratory: Symmetrical Chest Expansion and Respiratory Effort, Clear to Auscultation Cardiovascular: NL Sounds; No Murmurs; No JVD, RRR Abdominal: NL Sounds; No Tenderness; No Distention Extremities: No Edema Skin: No Rash or Ulcers Neurological: - - Alert, oriented to self, place, and situation; mildly disoriented to time Lines/Tubes/Other Access: Clean, Dry and Intact Peripheral IV Nutrition: Taking PO's Result Diagrams: 08/28/16 13:30 08/29/16 06:07 Additional Lab and Data: Lab Results 08/28/16 08/28/16 08/28/16 Range/Units 13:30 13:30 13:30 WBC 7.1 (3.5-10.8) 10^3/ul RBC 4.43 (4.0-5.4) 10^6/ul Hgb 13.2 L (14.0-18.0) g/dl Hct 40 L (42-52) % MCV 90 (80-94) fL MCH 30 (27-31) pg MCHC 33 (31-36) g/dl RDW 14 (10.5-15) % Plt Count 287 (150-450) 10^3/ul MPV 8 (7.4-10.4) um3 Neut % (Auto) 60.1 (38-83) % Lymph % (Auto) 28.9 (25-47) % Dolores % (Auto) 6.9 (1-9) % Eos % (Auto) 3.0 (0-6) % Baso % (Auto) 1.1 (0-2) % Absolute Neuts (auto) 4.3 (1.5-7.7) 10^3/ul Absolute Lymphs (auto) 2.1 (1.0-4.8) 10^3/ul Absolute Monos (auto) 0.5 (0-0.8) 10^3/ul Absolute Eos (auto) 0.2 (0-0.6) 10^3/ul Absolute Basos (auto) 0.1 (0-0.2) 10^3/ul Absolute Nucleated RBC 0 10^3/ul Nucleated RBC % 0 INR (Anticoag Therapy) 0.93 (0.89-1.11) Sodium 137 (133-145) mmol/L Potassium 3.9 (3.5-5.0) mmol/L Chloride 101 (101-111) mmol/L Carbon Dioxide 32 (22-32) mmol/L Anion Gap 4 (2-11) mmol/L BUN 10 (6-24) mg/dL Creatinine 1.18 H (0.67-1.17) mg/dL Est GFR ( Amer) 78.5 (>60) Est GFR (Non-Af Amer) 61.0 (>60) BUN/Creatinine Ratio 8.5 (8-20) Glucose 94 (70-100) mg/dL Lactic Acid (0.5-2.0) mmol/L Calcium 10.8 H (8.6-10.3) mg/dL Total Bilirubin 0.50 (0.2-1.0) mg/dL AST 20 (13-39) U/L ALT 12 (7-52) U/L Alkaline Phosphatase 55 (34-104) U/L Troponin I 0.01 (<0.04) ng/mL Total Protein 7.1 (6.4-8.9) g/dL Albumin 4.1 (3.2-5.2) g/dL Globulin 3.0 (2-4) g/dL Albumin/Globulin Ratio 1.4 (1-3) Triglycerides 214 mg/dL Cholesterol 213 mg/dL LDL Cholesterol 132 mg/dL HDL Cholesterol 38.1 mg/dL Urine Color Urine Appearance Urine pH (5-9) Ur Specific [place] (1.010-1.030) Urine Protein (Negative) Urine Ketones (Negative) Urine Blood (Negative) Urine Nitrate (Negative) Urine Bilirubin (Negative) Urine Urobilinogen (Negative) Ur Leukocyte Esterase (Negative) Urine Glucose (Negative) 08/28/16 08/28/16 Range/Units 13:30 14:50 WBC (3.5-10.8) 10^3/ul RBC (4.0-5.4) 10^6/ul Hgb (14.0-18.0) g/dl Hct (42-52) % MCV (80-94) fL MCH (27-31) pg MCHC (31-36) g/dl RDW (10.5-15) % Plt Count (150-450) 10^3/ul MPV (7.4-10.4) um3 Neut % (Auto) (38-83) % Lymph % (Auto) (25-47) % Dolores % (Auto) (1-9) % Eos % (Auto) (0-6) % Baso % (Auto) (0-2) % Absolute Neuts (auto) (1.5-7.7) 10^3/ul Absolute Lymphs (auto) (1.0-4.8) 10^3/ul Absolute Monos (auto) (0-0.8) 10^3/ul Absolute Eos (auto) (0-0.6) 10^3/ul Absolute Basos (auto) (0-0.2) 10^3/ul Absolute Nucleated RBC 10^3/ul Nucleated RBC % INR (Anticoag Therapy) (0.89-1.11) Sodium (133-145) mmol/L Potassium (3.5-5.0) mmol/L Chloride (101-111) mmol/L Carbon Dioxide (22-32) mmol/L Anion Gap (2-11) mmol/L BUN (6-24) mg/dL Creatinine (0.67-1.17) mg/dL Est GFR ( Amer) (>60) Est GFR (Non-Af Amer) (>60) BUN/Creatinine Ratio (8-20) Glucose (70-100) mg/dL Lactic Acid 1.3 (0.5-2.0) mmol/L Calcium (8.6-10.3) mg/dL Total Bilirubin (0.2-1.0) mg/dL AST (13-39) U/L ALT (7-52) U/L Alkaline Phosphatase (34-104) U/L Troponin I (<0.04) ng/mL Total Protein (6.4-8.9) g/dL Albumin (3.2-5.2) g/dL Globulin (2-4) g/dL Albumin/Globulin Ratio (1-3) Triglycerides mg/dL Cholesterol mg/dL LDL Cholesterol mg/dL HDL Cholesterol mg/dL Urine Color Yellow Urine Appearance Cloudy Urine pH 7.0 (5-9) Ur Specific [place] 1.033 H (1.010-1.030) Urine Protein Negative (Negative) Urine Ketones Negative (Negative) Urine Blood Negative (Negative) Urine Nitrate Negative (Negative) Urine Bilirubin Negative (Negative) Urine Urobilinogen Negative (Negative) Ur Leukocyte Esterase Negative (Negative) Urine Glucose Negative (Negative) Assess/Plan/Problems-Billing Assessment: Mr. Pickard is a 71 yo male with a PMH of HLD, dementia, nephrolithiasis, HTN, amyloid angiopathy, left intracerebellar hemorrhage in 2002, and occipital hemorrhage in 2011 who presented to the ED on 08/28/16 with concern for left sided weakness. - Patient Problems (1) TIA (transient ischemic attack) Comment: Presented with left sided weakness and difficulty ambulating, now resolved. MRI shows no areas of restricted diffusion. CT shows no signs of hemorrhage. Echocardiogram shows PFO, previously known. Anticoagulation and antiplatelet therapies contraindicated with previous hemorrhagic stroke. Statin discontinued by PCP due to risk of worsening amyloid angiopathy; discussed with Dr. Ba. Patient recommended to f/u with PCP regarding further lipid lowering agents. No arrhythmias noted on telemetry, neuro checks WNL. (2) Seizure disorder Code(s): G40.909 - EPILEPSY, UNSP, NOT INTRACTABLE, WITHOUT STATUS EPILEPTICUS Comment: History of partial seizures. Continue lamictal. Seizure precuations (3) Cerebral amyloid angiopathy Code(s): E85.4 - ORGAN-LIMITED AMYLOIDOSIS; I68.0 - CEREBRAL AMYLOID ANGIOPATHY Comment: History of previous hemorrhagic bleeds Currently not on antiplatelet therapy due to risk for recurrence (4) HTN (hypertension) Code(s): I10 - ESSENTIAL (PRIMARY) HYPERTENSION Comment: Normotensive, continue metoprolol. (5) Dementia Code(s): F03.90 - UNSPECIFIED DEMENTIA WITHOUT BEHAVIORAL DISTURBANCE Comment : Stable, continue donepezil. Supportive care. (6) DVT prophylaxis Comment: SCDs, due to high risk for recurrence of hemorrhagic stroke. Status and Disposition: OBV admit. D/c to home.
--- NOTE | 2016-08-29 15:35 | ECHO ---
Patient: BERNARDINO MANUEL [facility] Rec#: [id number] : 1945 Date: 08/29/2016 Age: 71y Height: 175.3 cm / 69.0 in Weight: 75.8 kg / 167.1 lbs Sex: M BSA: 1.9 Room#: 436 Admit Date#: 08/28/2016 Type: Inpatient Referring: Yokasta Palm NP Reading: Timothy Barth MD Menagerie Caretaker: Yokasta Espitia Menagerie Caretaker: Eleanor Pickard RN RDCS CC: Jayce Decker MD Transthoracic Echocardiogram Indication: TIA BP: 126/64 HR: 56 Rhythm: Bradycardia Findings History: HTN, HLD, amyloid angiopathy, CVA 2002, former smoker, PFO on CRISTIAN 05/21/03. Technical Comments: The study quality is fair. The study is technically limited due to the patient's smoking history. Completed at 1145. Left Ventricle: The left ventricular chamber size is normal. Mild concentric left ventricular hypertrophy is observed. Global left ventricular wall motion and contractility are within normal limits. There is normal left ventricular systolic function. The estimated ejection fraction is 55-60%. Normal left ventricular diastolic filling is observed. Left Atrium: The left atrial chamber size is normal. Right Ventricle: The right ventricular cavity size is normal. The right ventricular global systolic function is normal. Right Atrium: The right atrial cavity size is normal. A patent foramen ovale is demonstrated by color Doppler. Positive Bubble study on CRISTIAN in 2002 Aortic Valve: The aortic valve is trileaflet. The aortic valve leaflets are mildly thickened. There is no evidence of aortic regurgitation. There is no evidence of aortic stenosis. Mitral Valve: The mitral valve leaflets are mildly thickened. There is mild mitral regurgitation. There is no evidence of mitral stenosis. Tricuspid Valve: The tricuspid valve leaflets are normal. There is mild tricuspid regurgitation. No pulmonary hypertension is noted. There is no tricuspid stenosis. Pulmonic Valve: The pulmonic valve appears normal. There is a trace pulmonic regurgitation. There is no pulmonic stenosis. Pericardium: There is no pericardial effusion. Aorta: There is no dilatation of the ascending aorta. There is no dilatation of the aortic arch. There is no dilation of the aortic root. Pulmonary Artery: The main pulmonary artery appears normal. Venous: The inferior vena cava appears normal in size. There is a greater than 50% respiratory change in the inferior vena cava dimension. Conclusions Mild concentric left ventricular hypertrophy is observed. Global left ventricular wall motion and contractility are within normal limits. There is normal left ventricular systolic function. The estimated ejection fraction is 55-60%. The right ventricular global systolic function is normal. A patent foramen ovale is demonstrated by color Doppler. Positive Bubble study on CRISTIAN in 2002 There is no evidence of aortic regurgitation. There is no evidence of aortic stenosis. There is mild mitral regurgitation. There is mild tricuspid regurgitation. No pulmonary hypertension is noted. There is no pericardial effusion. Measurements Name Value Normal Range RVDdMajor (2D) 3.1 cm (2.2 - 4.4) RAd ISD 4CH 4.7 cm (3.4 - 4.9) RA (A4C)W 3.6 cm (2.9 - 4.6) IVSd (2D) 1.2 cm (0.6 - 1) LVPWd (2D) 1.1 cm (0.6 - 1) LVIDd (2D) 4.6 cm (3.6 - 5.4) LVIDs (2D) 3 cm - LV FS (2D) 34 % (25 - 45) Aortic Annulus 2.3 cm (1.4 - 2.6) Ao root diameter (2D) 3.1 cm (2.1 - 3.5) Ascending Ao 3.1 cm (2.1 - 3.4) Aortic arch 1.8 cm (1.8 - 3.4) LA dimension (AP) 2D 3.8 cm (2.3 - 3.8) LAd ISD 4CH 4.2 cm (2.9 - 5.3) LA ISD 4CH W 3.7 cm (2.5 - 4.5) Name Value Normal Range LA ESV SP 4CH (A/L) 39 ml - LA ESV SP 2CH (A/L) 35 ml - LA ESV BP (A/L) 41 ml - LA ESV BP (A/L) index 21 ml/m2 - LA ESV SP 4CH (MOD) 36 ml - LA ESV SP 2CH (MOD) 33 ml - Name Value Normal Range MV E-wave Vmax 0.81 m/sec - MV deceleration time 191 msec - MV A-wave Vmax 0.56 m/sec - MV E:A ratio 1.5 ratio - LV septal e' Vmax 0.07 m/sec - LV lateral e' Vmax 0.1 m/sec - LV E:e' septal ratio 11.6 ratio - LV E:e' lateral ratio 8.1 ratio - Name Value Normal Range AV Vmax 0.96 m/sec - LVOT Vmax 0.87 m/sec - MARCI Vmax 0.6 m/sec - Name Value Normal Range TR Vmax 2.3 m/sec - TR peak gradient 21 mmHg - RAP 3 mmHg - RVSP 24 mmHg - IVC diameter 1.8 cm - Name Value Normal Range PV Vmax 0.75 m/sec -
--- NOTE | 2016-08-30 09:37 | DS ---
DISCHARGE SUMMARY: DATE OF ADMISSION: 08/28/16 DATE OF DISCHARGE: 08/29/16 PROVIDER: Tere North NP. ATTENDING PHYSICIAN: Dr. Shantanu Ruvalcaba * (as dictated by Tere North NP). PRIMARY CARE PHYSICIAN: Dr. Jayce Decker. CONSULTING PHYSICIAN: Dr. Jara, Neurology. PRIMARY OUTPATIENT NEUROLOGIST: Dr. Roberta Patton. PRIMARY DISCHARGE DIAGNOSES: 1. Transient ischemic attack. 2. Hyperlipidemia. SECONDARY DISCHARGE DIAGNOSES: 1. History of intraparenchymal hemorrhage x3 separate events. 2. History of partial seizure with secondary generalization. 3. Hyperlipidemia. 4. Hypertension. 5. Renal stone. 6. Amyloid angiopathy. HOME MEDICATIONS AT DISCHARGE: 1. Toprol XL 75 mg daily. The patient is ordered 25 mg and 50 mg to equal 75 mg dose. 2. Lamictal 300 mg at bedtime. 3. BuSpar 10 mg b.i.d. 4. Donepezil 10 mg daily. 5. Vitamin D3 1000 units daily. 6. Dyazide 37.5/25 one capsule daily. 7. Lamotrigine 200 mg q.8h. a.m. DIAGNOSTIC TESTING DURING THIS ADMISSION: 1. CT of the brain 08/28/16, impression: Chronic ischemic white matter without change since June 09, 2014. No intracranial mass or hemorrhages noted. 2. Chest x-ray 08/28/16: No active cardiopulmonary disease is noted. 3. CT of the head on 08/28/16, impression: Plaque is noted in the origins of both internal carotid arteries. Just distal to the origin of the left internal carotid artery is soft plaque with approximately 50% stenosis. No evidence of branch occlusion or aneurysmal dilatation is noted. No evidence of carotid artery dissection is noted. Origins of the great vessels are limited in evaluation due to left-sided intravenous injection. 4. EKG shows sinus bradycardia with abnormal R-wave progression. 5. Transthoracic echocardiogram on 08/29/16 conclusions: Mild concentric left ventricular hypertrophy is observed. Global left ventricular wall motion and contractility are within normal limits. There is normal left ventricular systolic function. The estimated ejection fraction is 55% to 60%. The right ventricular global systolic function is normal. A patent foramen ovale is demonstrated by color Doppler. Positive bubble study on CRISTIAN in 2002. There is no evidence of aortic regurgitation. There is no evidence of aortic stenosis. There is mild mitral regurgitation. There is mild tricuspid regurgitation. No pulmonary hypertension is noted. There is no pericardial effusion. 6. MRI of the brain from 08/29/16, impression: a. No restricted diffusion to suggest acute infarct. b. Left parietal encephalomalacia consistent with remote infarct. c. Diffuse involutional change with chronic vessel ischemic changes. d. Innumerable foci of susceptibility artifact, suggestive of chronic microhemorrhage in the setting of chronic untreated hypertension or amyloid angiopathy. HOSPITAL COURSE OF STAY: For full details, please refer to the H and P provided by Nurse Practitioner Yokasta Agosto as well the consultation provided by Dr. Jara on 08/28/16. In summary, Mr. Pickard is a 71-year-old gentleman who presented to the ED on for evaluation of left-sided weakness. Reportedly, the patient was noted by his family that he was dragging his left leg and tilting to the left side when walking. This episode had lasted for approximately an hour and resolved by the time the patient arrived to the ED. He underwent testing as previously mentioned and was seen by neurology in consult. There was concern as the patient reportedly has been having some decline in cognitive functioning, especially in light of his previous intraparenchymal hemorrhages. He is under the care of Dr. Patton who has a suspicion for amyloid angiopathy. The patient was admitted for observation and monitored overnight. No signs of arrhythmias were seen on telemetry. His neurological checks remained within normal limits. Mr. Pickard did have a physical therapy evaluation, and was discharged from physical therapy with no acute concerns or needs. He underwent diagnostic testing as previously mentioned. However, given the findings and no clear-cut evidence of an ischemic stroke, Neurology recommended that the patient be continued on his current medications at this time and no further changes are needed at this time. The patient does not require antiplatelet or anticoagulation therapies given his history of three previous intraparenchymal hemorrhages. The patient did notably have elevated cholesterol and lipids and LDL, but his states that he was previously on atorvastatin but it was discontinued by his PCP, Dr. Decker, due to the concern for amyloid angiopathy as there is a loose association with statins and increased risk of bleeding. I did discuss this with Dr. Ba who felt it was appropriate for the patient to followup with his PCP in regards to further cholesterol control and rate controlling agents. I did provide an education regarding diet to the patient as well as a printed handout. The patient did have a mildly elevated creatinine which appears slightly above his baseline. The patient should follow up outpatient labs with his PCP to monitor his kidney function. A script for followup BNP was sent to the patient's home. CONCERNS AT DISCHARGE: Mr. Pickard will be discharged to home with his , who states that he is at his baseline, on 08/02/16 with a plan to follow up with his PCP and Dr. Patton. DIET: Heart-healthy diet. ACTIVITY: As tolerated. CONDITION: Improved. DISPOSITION: To home. TIME SPENT: Time spent on this discharge was approximately 45 minutes. Again, this is only a brief summary of this patient's hospital course of stay. For full details, please refer to the full medical records. If you have any further questions or need further assistance, please feel free to contact at [phone]. TERE NORTH NP CC: Dr. Jayce Decker * [id number]/CPS #: [id number] SONYA
== END 2016-08-29 18:30 | disposition home or self-care (01) ==
LOC: ED 12:30 → MEDTELE 14:48
PROVIDERS: ADMIT Hospitalist; ATTEND Hospitalist
DX: G45.9 Transient cerebral ischemic attack, unspecified (principal); E78.5 Hyperlipidemia, unspecified; G40.909 Epilepsy, unspecified, not intractable, without status epilepticus; E85.4 Organ-limited amyloidosis; I10 Essential (primary) hypertension; Z86.73 Personal history of transient ischemic attack (TIA), and cerebral infarction without residual deficits; R94.4 Abnormal results of kidney function studies; F03.90 Unspecified dementia, unspecified severity, without behavioral disturbance, psychotic disturbance, mood disturbance, and anxiety; I99.8 Other disorder of circulatory system; Z79.899 Other long term (current) drug therapy; Z87.891 Personal history of nicotine dependence; R00.1 Bradycardia, unspecified; I51.7 Cardiomegaly
CPT/HCPCS: 36415; 70450; 70496; 70498; 70551; 71010; 80048; 80053; 80061; 80175; 81003; 83605; 84484; 85025; 85610; 93005; 93306; 99284; A9270-GY; G0378; G8978-GP-CH; G8979-GP-CH; G8980-GP-CH; Q9967

== ENCOUNTER 2017-03-12 17:50 | Emergency (ER) | payer SELFPAY ==
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
[2017-03-12 19:42] VITALS: BP 126/70
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
== END 2017-03-12 19:42 | disposition home or self-care (01) ==
LOC: ED 17:50
DX: S60.511A Abrasion of right hand, initial encounter (principal); M25.511 Pain in right shoulder; V49.9XXA Car occupant (driver) (passenger) injured in unspecified traffic accident, initial encounter; Y93.9 Activity, unspecified; Y92.9 Unspecified place or not applicable
CPT/HCPCS: 70450; 72128; 99282

== ENCOUNTER 2017-08-02 17:19 | Emergency (ER) | payer MEDICARE, OTHER ==
--- OUTSIDE RECORDS SUMMARY | 2017-08-02 18:31 | XMS REPORT ---
:1945 External Reference #:[id number] Author Organization [employer] Address [address] [place] [address] Phone [phone] Care Team Providers Name Role Phone Elvia Cooper MD Primary Care Physician Unavailable Payers Type Date Identification Numbers Payment Provider Subscriber Commercial Policy Number: [id number] BS [place] [employer] Justyn [employer] Number: [id number] [address] [address] PayID: [id number] [place] [address] Problems Date Description Provider Status Onset: Essential hypertension Active Onset: Hypercholesterolemia Active Onset: Seizure Active Onset: Alzheimer's disease Active Onset: Anxiety Active Onset: 07/12/2017 Homonymous hemianopia Nomi Quigley M.D. Active Onset: 07/12/2017 Nuclear senile cataract Nomi Quigley M.D. Active Onset: 06/01/2016 Presbyopia Svetlana Guzmán O.D. Active Onset: 06/01/2016 Regular astigmatism Svetlana Guzmán O.D. Active Onset: 06/01/2016 Combined form of senile cataract Svetlana Guzmán O.D. 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 ETOH Use Denies alcohol use Smoking Patient has never smoked Recreational Drug Use Denies Drug Use Daily Caffeine Consumes on average 1 cup of regular coffee per day Allergies, Adverse Reactions, Alerts Date Description Reaction Status Severity Comments 05/31/2016 NKDA active Medications Medication Date Status Form Strength Qnty SIG Indications Ordering Provider Lamictal Active Tablets 200mg Unknown 00 Donepezil HCL Active Tablets 10mg Unknown 00 Buspirone HCL Active Tablets 10mg Unknown Triamterene/Hyd Active Capsules 37.5-25mg Unknown rochlorothiazid 00 e Vitamin D Active Capsules 2000Unit Unknown 00 Metoprolol Active Tablets ER 50mg Unknown Succinate ER 00 24HR Results Description No Information Procedures Date CPT Code Description Status 06/01/2016 88137 Determination Of Refractive State Completed 06/01/2016 55560 Est Patient Comprehensive Exam Completed 01/29/2014 08589 Est Patient Comprehensive Exam Completed 10/30/2012 10261 Determination Of Refractive State Completed 10/30/2012 07079 Est Patient Comprehensive Exam Completed 07/16/2012 65536 Visual Field Exam Extended Completed 09/28/2011 65040 Visual Field Exam Extended Completed 09/28/2011 91063 Est Patient Comprehensive Exam Completed 06/21/2011 51422 Est Patient Comprehensive Exam Completed 06/21/2011 65043 Determination Of Refractive State Completed 06/17/2009 56517 Determination Of Refractive State Completed 06/17/2009 06285 Est Patient Comprehensive Exam Completed 11/28/2006 89670 Determination Of Refractive State Completed 11/28/2006 79507 Est Patient Comprehensive Exam Completed 11/05/2003 37572 Determination Of Refractive State Completed 11/05/2003 19959 Est Patient Comprehensive Exam Completed 10/21/2003 60933 Rescheduled Appointment Completed Encounters Type Date Location Provider CPT E/M Dx Office Visit 01/01/2013 8:15a Huang Greene MD, Steven Love M.D. 74741 [id number] Plan of Care 07/12/2017 - Nomi Quigley M.D.H53.461 Homonymous bilateral field defects, right sideComments:Smoking can increase the risk of developing or worsening any eye related disease, as well as affect your overall health. If you are a smoker , we strongly recommend that you quit.If you are not a smoker, we strongly recommend that you do not start. You have a visual field defect in both eyes. Furthertesting is often required to properly diagnose the cause of this. Please follow all of Dr. Quigley's instructions and keep all follow up appointments. I WILL SEND A REPORT TO DR. SEAMAN. I THINK ANMRI OF THE BRAIN MAY BE NEEDED TO LOOK INTO THE RIGHT PERIPHERAL VISION DECLINEFollow up:6 Month Follow Up DFE , VF [id number] Age-related nuclear cataract, bilateralComments:Smoking can increase the risk of developing or worsening any eye related disease, as well as affect your overall health. If you are a smoker, we strongly recommend that you quit.If you are not a smoker, we strongly recommend that you do not start. You have been diagnosed with cataracts. If you are happy with your vision as it is now, then we will see you at your next scheduled appointment. If you feel like your vision is getting worse before your scheduled appointment, please call Fiordaliza or Anita [phone].
[2017-08-02] MEDS ORDERED: Lidocaine 2% JELLY* 6 ML JELLY TOPICAL ONE (21:58)
--- NOTE | 2017-08-03 00:06 | ED ---
Zoey Arriaga Gabriel, scribed for Gibran Paniagua MD on 08/02/17 at 2046 . Abdominal Pain/Male - HPI Summary HPI Summary: This patient is a 72 year old M presenting to [facility] accompanied by his with a chief complaint of ABD pain since the last few days. The patient rates the pain 4/10 in severity. Patient reports nausea, difficulty emptying his bladder, and abdominal distension. Patient denies vomiting. 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 Last week he had not had a BM in many days and had one large void. He began taking fiber and drinking lots of fluids but still has not had a BM since a week ago. He recently had a medication change for his dementia. - History of Current Complaint Chief Complaint: EDAbdPain Stated Complaint: OBSTRUCTION IN BOWEL-SENT BY DR Mata Seen by Provider: 08/02/17 20:05 Hx Obtained From: Patient, Family/Cell Preparer - Onset/Duration: Lasting Weeks - 2, Still Present Timing: Constant Severity Initially: Mild Severity Currently: Mild Pain Intensity: 4 Pain Scale Used: 0-10 Numeric Location: Diffuse Radiates: No Associated Signs And Symptoms: Positive: Other - nausea, difficulty empting his bladder, and abdominal distension. Negative: Vomiting - Allergies/Home Medications Allergies/Adverse Reactions: Allergies Allergy/AdvReac Type Severity Reaction Status Date / Time No Known Allergies Allergy Verified 08/02/17 17:32 PMH/Surg Hx/FS Hx/Imm Hx Endocrine/Hematology History: Denies: Hx Anticoagulant Therapy, Hx Diabetes, Hx Thyroid Disease Comment Only: Hx Blood Disorders - AMYLOIDOSIS Cardiovascular History: Reports: Hx Hypertension Denies: Hx Pacemaker/ICD Respiratory History: Denies: Hx Asthma, Hx Chronic Obstructive Pulmonary Disease (COPD) History: Reports: Hx Benign Prostatic Hyperplasia - HAS TROUBLE INNITIATING, AND HAS ISSUES WITH DRIBBLING Denies: Hx Renal Disease Comment Only: Other Problems/Disorders - RECENTLY BEEN IN TO SEE DR SOMMER. Sensory History: Reports: Hx Contacts or Glasses - READING, NOT WITH PT. Denies: Hx Hearing Aid Opthamlomology History: Reports: Hx Contacts or Glasses - READING, NOT WITH PT. Neurological History: Reports: Hx CVA, Hx Seizures, Hx Transient Ischemic Attacks (TIA) Denies: Hx Dementia Psychiatric History: Denies: Hx Panic Disorder, Hx Substance Abuse Comment Only: Hx Anxiety - PT APPEARS SOME WHAT ANXIOUS ON ADMISSION, ADMITS TO STRESSORS - Surgical History Surgery Procedure, Year, and Place: tonsilectomy Infectious Disease History: No Infectious Disease History: Denies: Hx Hepatitis, Hx Human Immunodeficiency Virus (HIV), Traveled Outside the [place] in Last 30 Days - Family History Known Family History: Positive: Hypertension, Diabetes, Other - Colon Cancer - Social History Alcohol Use: None Hx Substance Use: No Substance Use Type: Reports: None Hx Tobacco Use: No Smoking Status (MU): Never Smoked Tobacco Review of Systems Gastrointestinal: Other - ABD distension Positive: Abdominal Pain, Nausea, Other - unable to void bowels . Negative: Vomiting Positive: other - unable to void bladder All Other Systems Reviewed And Are Negative: Yes Physical Exam - Summary Physical Exam Summary: VITAL SIGNS: Reviewed. GENERAL: Patient is a well-developed and nourished male who is lying comfortable in the stretcher. Patient is not in any acute respiratory distress. HEAD AND FACE: No signs of trauma. No ecchymosis, hematomas or skull depressions. No sinus tenderness. EYES: PERRLA, EOMI x 2, No injected conjunctiva, no nystagmus. EARS: Hearing grossly intact. Ear canals and tympanic membranes are within normal limits. MOUTH: Oropharynx within normal limits. NECK: Supple, trachea is midline, no adenopathy, no JVD, no carotid bruit, no c- spine tenderness, neck with full ROM. CHEST: Symmetric, no tenderness at palpation LUNGS: Clear to auscultation bilaterally. No wheezing or crackles. CVS: Regular rate and rhythm, S1 and S2 present, no murmurs or gallops appreciated. ABDOMEN: ABD is soft and he has hypoactive bowels sounds. EXTREMITIES: FROM in all major joints, no edema, no cyanosis or clubbing. NEURO: Alert and oriented x 3. No acute neurological deficits. Speech is normal and follows commands. SKIN: Dry and warm Rectal: No gross blood. Evidence of fecal impaction Triage Information Reviewed: Yes Vital Signs On Initial Exam: Initial Vitals Temp Pulse Resp BP Pulse Ox 98.2 F 57 16 138/75 96 08/02/17 17:27 08/02/17 17:27 08/02/17 17:27 08/02/17 17:27 08/02/17 17:27 Vital Signs Reviewed: Yes - [place] Coma Scale Coma Scale Total: 15 Procedures - Procedure Summary Procedure Summary: Fecal dis-impaction: used viscus lidocaine to numb the area then a soap suds enema was used. Patient had large bowel movement and was able to urinate Diagnostics - Vital Signs Vital Signs Temp Pulse Resp BP Pulse Ox 08/02/17 17:27 98.2 F 57 16 138/75 96 - Laboratory Lab Statement: Any lab studies that have been ordered have been reviewed, and results considered in the medical decision making process. Abdominal Pain Fem Course/Dx - Course Assessment/Plan: This patient is a 72 year old M presenting to [facility] accompanied by his with a chief complaint of ABD pain since the last few days. The patient rates the pain 4/10 in severity. Patient reports nausea, difficulty empting his bladder, and abdominal distension. Patient denies vomiting. 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 Last week he had not had a BM in many days and had one large void. He began taking fiber and drinking lots of fluids but still has not had a BM since a week ago. He recently had a medication change for his dementia. Fecal dis-impaction: used viscus lidocaine to numb the area then a soap suds enema was used. Patient had large bowel movement and was able to urinate. In the ED course the patient was given lidocaine jelly 2%. Patient will be discharged and follow up from Dr. Cooper. The patient is agreeable with this plan. - Diagnoses Provider Diagnoses: Fecal impaction, Constipation Discharge - Discharge Plan Condition: Stable Disposition: HOME Referrals: Jessie Cooper, [facility] [Primary Care Provider] - Additional Instructions: Take fiber supplement once day. RETURN TO EMERGENCY DEPARTMENT FOR ANY NEW OR WORSENING SYMPTOMS The documentation as recorded by the Zoey calderon Gabriel accurately reflects the service I personally performed and the decisions made by me, Gibran Paniagua MD.
[2017-08-03 01:37] VITALS: BP 151/76
== END 2017-08-03 01:36 | disposition home or self-care (01) ==
LOC: ED 17:19
DX: K56.41 Fecal impaction (principal); R11.0 Nausea; R10.9 Unspecified abdominal pain
CPT/HCPCS: 99283

== ENCOUNTER 2017-10-19 14:20 | Observation (INO) | payer MEDICARE ==
[2017-10-19] MEDS ORDERED: NS 0.9% 1000 ML* 1,000 ML IV ONE (14:37)
--- OUTSIDE RECORDS SUMMARY | 2017-10-19 14:43 | XMS REPORT ---
:1945 External Reference #:[id number] Author Organization [facility] Address [address] [address] Phone [phone] Care Team Providers Name Role Phone Elvia Cooper MD Primary Care Physician Unavailable Payers Type Date Identification Numbers Payment Provider Subscriber Health Maintenance Effective: Policy Number: Medicare [employer] Organization (HMO) 07/31/2012 [id number] Ppo PayID: [id number] [address] [address] [place] [address] Problems Date Description Provider Status Onset: 09/29/2014 Localization-related epilepsy Roberta Patton M.D. Active Onset: 09/29/2014 Cerebral hemorrhage Roberta Patton M.D. Active Note: repeat (question secondary to amyloid) Onset: 09/29/2014 Impaired cognition Roberta Patton M.D. Active Note: history of repeat cerebral bleeds Social History Type Date Description Comments ETOH Use Denies alcohol use Smoking Patient is a former smoker Allergies, Adverse Reactions, Alerts Date Description Reaction Status Severity Comments 04/15/2013 NKDA active Medications Medication Date Status Form Strength Qnty SIG Indications Ordering Provider Namzaric 06/29/ Active Caps ER 24HR 28-10mg 90caps take 1 by F03.90 Roberta 2016 mouth a Cowdery, day M.D. Lamictal 07/03/ Active Tablets 200mg 225tab 1 in in E85.9 Roberta 2014 s the Cowdery, morning M.D. and 1.5 tabs at at bedtime Buspirone HCL 04/15/ Active Tablets 10mg 60tabs 1 po qam Roberta 2012 and 1 po Cowdery, qpm M.D. Metoprolol 00/00/ Active Tablets 50mg 180tab 1 po every Unknown Tartrate 0000 s evening Vitamin D 00/00/ Active Capsules 1000Unit 30caps po qd Unknown 0000 Triamterene/H 0000/ Active Capsules 37.5-25mg 1 po qd Unknown ydrochlorothi 0000 azide Metoprolol 00/ Active Tablets ER 25mg 1 by mouth Unknown Succinate ER 0000 24HR every morning Fluticasone / Active Suspension 50mcg/Act 2 sprays Unknown Propionate 0000 each nostril qd. Lamictal 07/03/ Hx Tablets 100mg 450tab 2 + 1 E85.9 Roberta 2014 - s tablets by Pooja, 07/03/ mouth M.DThanh 2014 twice a day Lamictal 06/12/ Hx Tablets 25mg 360tab 2 tabs by [id number] Justyn Alcala 2013 - s mouth bid Mejia, M.D. 2014 Donepezil HCL 12/05/ Hx Tablets 10mg 90tabs 1 by mouth E85.9 Roberta 2013 - every day Pooja, M.D. 2016 Donepezil HCL 08/29/ Hx Tablets 5mg 90tabs 1 po qd Roberta 2013 - Pooja, M.D. 2013 Lamictal 04/08/ Hx Tablets 25mg 60tabs take 1 po Roberta 2012 - bid, in Pooja, addition M.D. 2012 to 200 mg tablets Lamictal 08/01/ Hx Tablets 150mg 90tabs 1 po qam; Roberta 2012 - (take in Pooja, addition M.D. 2012 to 200mg qpm) Lamictal 08/01/ Hx Tablets 200mg 180tab take 1 by Kendy 2012 - s mouth Gnadt, SCRAP [employer] CUTTER 07/03/ twice a 2014 day Lorazepam / Hx Tablets 1mg 1 tab po Unknown 0000 - prn 2014 Vitamin C / Hx Capsules 500-400mg- 1 by mouth Unknown 0000 - Unit every day 2016 Vital Signs Date Vital Result Comment 10/18/2017 Height 67.5 inches 5'7.50" Weight 168.00 lb Heart Rate 68 /min BP Systolic Sitting 126 mmHg BP Diastolic Sitting 78 mmHg Respiratory Rate 16 /min BMI (Body Mass Index) 25.9 kg/m2 06/29/2017 Height 67.5 inches 5'7.50" Weight 162.00 lb Heart Rate 64 /min BP Systolic 124 mmHg BP Diastolic 66 mmHg Respiratory Rate 14 /min BMI (Body Mass Index) 25.0 kg/m2 09/28/2016 Height 67.5 inches 5'7.50" Weight 167.00 lb Heart Rate 64 /min BP Systolic Sitting 116 mmHg BP Diastolic Sitting 72 mmHg Respiratory Rate 14 /min BMI (Body Mass Index) 25.8 kg/m2 01/20/2016 Height 67.5 inches 5'7.50" Weight 159.00 lb Heart Rate 72 /min BP Systolic Sitting 130 mmHg BP Diastolic Sitting 76 mmHg Respiratory Rate 16 /min BMI (Body Mass Index) 24.5 kg/m2 06/15/2015 Height 69 inches 5'9" Weight 161.00 lb With boots Heart Rate 68 /min BP Systolic Sitting 134 mmHg BP Diastolic Sitting 80 mmHg Respiratory Rate 16 /min BMI (Body Mass Index) 23.8 kg/m2 12/31/2014 Height 69 inches 5'9" Weight 157.00 lb Heart Rate 56 /min BP Systolic Sitting 132 mmHg BP Diastolic Sitting 74 mmHg Respiratory Rate 16 /min BMI (Body Mass Index) 23.2 kg/m2 09/29/2014 Height 69 inches 5'9" Heart Rate 64 /min BP Systolic Sitting 136 mmHg BP Diastolic Sitting 74 mmHg Respiratory Rate 16 /min 06/12/2014 Height 69 inches 5'9" Weight 148.00 lb Heart Rate 56 /min BP Systolic Sitting 130 mmHg BP Diastolic Sitting 64 mmHg Respiratory Rate 16 /min BMI (Body Mass Index) 21.9 kg/m2 12/05/2013 Height 69 inches 5'9" Weight 152.00 lb Heart Rate 78 /min BP Systolic Sitting 120 mmHg BP Diastolic Sitting 76 mmHg Respiratory Rate 16 /min BMI (Body Mass Index) 22.4 kg/m2 08/15/2013 Heart Rate 72 /min BP Systolic Sitting 120 mmHg BP Diastolic Sitting 60 mmHg Respiratory Rate 16 /min 04/15/2013 Heart Rate 66 /min BP Systolic Sitting 126 mmHg BP Diastolic Sitting 78 mmHg Respiratory Rate 16 /min Results Test Date Test Result H/L Range Note Laboratory test 01/26/2016 Lamotrigine 11.2 g/mL 2.5 - 15.0 1 finding (Lamictal) Laboratory test 07/11/2014 Lamotrigine 12.1 g/mL 2.5 - 15.0 2 finding Laboratory test 05/01/2013 Lamotrigine 5.8 g/mL 2.5 - 15.0 3 finding 1 Test Performed by: [facility] [address] [place] [address] Inspector Soldering: Nael Benjamin II, M.D., Ph.D. 2 Test Performed by: [place] [address] Inspector Soldering: Jamel Burk M.D. 3 Test Performed by: [place] [address] Inspector Soldering: Los Jeffries III, M.D. Procedures Date CPT Code Description Status 08/29/2016 25458 ECHO Transthorasic Realtime 2D W Doppler & Color Completed Flow Hosp Encounters Type Date Location Provider CPT E/M Dx Office Visit 10/18/2017 [facility] Roberta Patton M.D. 60869 G40.909 11:30a [facility] F03.90 Office Visit 06/29/2017 1:00p [facility] Roberta Patton M.D. 17440 E85.9 [facility] G40.909 F03.90 Office Visit 09/28/2016 9:30a [facility] Roberta Patton M.D. 60188 G31.84 [facility] G40.209 I67.9 Office Visit 08/29/2016 8:24a [facility], [place] [address] G45.9 Hospitalists I10 E78.5 R56.9 Office Visit 08/28/2016 2:29p [facility] Jara 19874 G45.9 Domenic Office Visit 08/28/2016 8:23a [facility],ji Templeton 56082 G45.9 Hospitalists Negrita costa NP I10 E78.5 R56.9 Office Visit 01/20/2016 11:30a [facility] Roberta Patton M.D. 43323 G40.209 [facility] G31.84 Office Visit 06/15/2015 10:00a [facility] Roberta Patton M.D. 83788 G40.209 [facility] G31.84 I61.1 Office Visit 12/31/2014 10:45a [facility] Roberta Patton M.D. 53116 345.40 [facility] 331.83 431 Office Visit 09/29/2014 1:30p [facility] Roberta Patton M.D. 67801 345.40 [facility] 331.83 431 Office Visit 06/12/2014 11:45a [facility] Roberta Patton M.D. 20432 345.40 [facility] 331.83 431 Office Visit 12/05/2013 2:00p [facility] Roberta Patton M.D. 45686 345.40 [facility] 331.83 Office Visit 08/15/2013 11:00a [facility] Roberta Patton M.D. 26213 345.40 [facility] 437.8 331.83 Office Visit 04/15/2013 3:00p [facility] Roberta Patton M.D. 09171 345.40 [facility] 437.8 Office Visit 08/01/2012 8:45a [facility] Roberta Patton M.D. 40392 431 [facility] 345.40 Office Visit 06/08/2012 11:23a [facility], Magi Dutta, N.P. 50431 431 Hospitalists 401.9 780.79 Office Visit 06/07/2012 2:10p [facility] Roberta Patton M.D. 64848 431 [facility] 345.40 437.8 Office Visit 06/07/2012 11:23a [facility], Magi Dutta N.P. 93653 431 Hospitalists 401.9 780.79 Office Visit 09/26/2011 1:30p [facility], [address] 431 Edward Sheth Office Visit 10/24/2008 9:40a [facility] 74183 721.3 Edward Sheth 719.45 Office Visit 08/22/2008 2:40p [facility] 00746 722.10 Of Edward Sheth Plan of Care Future Appointment(s):04/25/2018 10:30 am - Roberta Patton M.D. at [facility]10/18/2017 - Roberta Patton M.D.G40.909 Epilepsy, unsp , not intractable, without status epilepticusFollow up:6 jdvqoB78.90 Unspecified dementia without behavioral disturbance
[2017-10-19 14:58] LABS: ABS Basophils 0.1 10^3/ul (0-0.2); ABS Eosinophils 0.3 10^3/ul (0-0.6); ABS Lymphocytes 2.5 10^3/ul (1.0-4.8); ABS Monocytes 0.6 10^3/ul (0-0.8); ABS Nucleated RBC 0 10^3/ul; Hematocrit 43 % (42-52); Hemoglobin 14.6 g/dl (14.0-18.0); Lymphocyte % 38.8 % (25-47); Mean Corpuscular HGB Conc 34 g/dl (31-36); Mean Corpuscular Hemoglobin 31 pg (27-31); Mean Corpuscular Volume 91 fL (80-94); Mean Platelet Volume 7.6 um3 (7.4-10.4); Nucleated Red Blood Cells % 0; Platelet Count 308 10^3/ul (150-450); Red Blood Count 4.66 10^6/ul (4.0-5.4); Red Cell Distribution Width 14 % (10.5-15); White Blood Count 6.4 10^3/ul (3.5-10.8)
[2017-10-19 15:06] LABS: INR 0.9 (0.77-1.02)
[2017-10-19 15:18] LABS: EGFR Non-African American 63.3 (>60)
--- NOTE | 2017-10-19 15:45 | RAD ---
HISTORY: Weren't finding difficulty COMPARISONS: August 28, 2016 VIEWS: 1: frontal portable view of the chest at 3:35 PM FINDINGS: LINES AND TUBES: None. CARDIOMEDIASTINAL SILHOUETTE: The cardiomediastinal silhouette is normal for portable technique. PLEURA: The costophrenic angles are sharp. No pleural abnormalities are noted. LUNG PARENCHYMA: The lungs are clear. ABDOMEN: The upper abdomen is clear. There is no subphrenic gas. BONES AND SOFT TISSUES: Degenerative changes are noted along the spine. IMPRESSION: NO ACTIVE CARDIOPULMONARY DISEASE.
--- NOTE | 2017-10-19 15:56 | RAD ---
HISTORY: Weren't finding difficulty COMPARISONS: March 12, 2017 TECHNIQUE: Multiple contiguous axial CT scans were obtained of the head without intravenous contrast. FINDINGS: HEMORRHAGE/INFARCT: There is no hemorrhage or acute infarct. MASSES/SHIFT: There is no mass or shift. EXTRA-AXIAL SPACES: There are no extra-axial fluid collections. SULCI AND VENTRICLES: The sulci and ventricles are normal in size and position for the patient's stated age. CEREBRUM: There is hypoattenuation of the periventricular and subcortical white matter. There is stable encephalomalacia of the left anterior parietal lobe. BRAINSTEM: There are no focal parenchymal abnormalities. CEREBELLUM: There are no focal parenchymal abnormalities. VESSELS: The vessels are grossly normal. PARANASAL SINUSES: The paranasal sinuses are clear. ORBITS: The orbits are unremarkable. BONES AND SOFT TISSUE: No bone or soft tissue abnormalities are noted. OTHER: None IMPRESSION: 1. NO ACUTE INTRACRANIAL PATHOLOGY. 2. CHRONIC SMALL VESSEL ISCHEMIC CHANGE. 3. STABLE LEFT PARIETAL ENCEPHALOMALACIA. 4. CT IS RELATIVELY INSENSITIVE FOR THE DETECTION OF ACUTE ON CHRONIC ISCHEMIA. IF THERE IS PERSISTENT CLINICAL CONCERN FOR ACUTE INFARCT, MRI MAY BE MORE SENSITIVE.
[2017-10-19 16:02] LABS: Urine Appearance Clear; Urine Blood Negative (Negative); Urine Color Yellow; Urine Ketones Negative (Negative); Urine Protein Negative (Negative); Urine Urobilinogen Negative (Negative)
[2017-10-19] MEDS ORDERED: Iohexol 350* (CONTRAST) 500 ML MDV IV ONE (16:36)
--- NOTE | 2017-10-19 17:13 | RAD ---
HISTORY: Difficulty with speech COMPARISONS: Head CT dated October 19, 2017, CT dated August 28, 2016 TECHNIQUE: Multiple contiguous axial CT scans were obtained of the head and neck after the administration of nonionic intravenous contrast timed to the systemic arterial phase of contrast enhancement. Coronal and sagittal multiplanar reformations are submitted for review. Multiple 3-D maximum intensity projection reconstructions are also submitted for review. FINDINGS: CTA NECK: AORTIC ARCH: There is a normal three-vessel branching pattern of the aortic arch. There is no ostial or proximal stenosis of the cephalic great vessels. RIGHT VERTEBRAL ARTERY: The right vertebral artery is patent along its course, without stenosis. LEFT VERTEBRAL ARTERY: The left vertebral artery is patent along its course, without stenosis. DOMINANCE: The vertebral arteries are codominant. RIGHT COMMON CAROTID ARTERY: The right common carotid artery is patent. The right carotid bifurcation occurs at C4-C5 RIGHT INTERNAL CAROTID ARTERY: There is atheromatous disease of the right carotid bifurcation, without right internal carotid artery stenosis by NASCET criteria. RIGHT EXTERNAL CAROTID ARTERY: The right external carotid artery is unremarkable. LEFT COMMON CAROTID ARTERY: The left common carotid artery is patent. The left carotid bifurcation occurs at C4-C5 LEFT INTERNAL CAROTID ARTERY: There is eccentric calcified and noncalcified atheromatous plaque with short segment left internal carotid artery stenosis just distal to the bifurcation measuring approximately 50% by NASCET criteria. LEFT EXTERNAL CAROTID ARTERY: The left external carotid artery is unremarkable. VENOUS CIRCULATION: The venous system is unremarkable. SALIVARY GLANDS: The parotid glands, submandibular glands, sublingual glands are normal. NASAL CAVITY/NASOPHARYNX: The nasal cavity and nasopharynx are normal. ORAL CAVITY/OROPHARYNX: The oral cavity is obscured by streak artifact from dental amalgam. The visualized oral cavity and oropharynx are unremarkable. LARYNGEAL APPARATUS/HYPOPHARYNX: The laryngeal apparatus and hypopharynx are normal. UPPER AIRWAY/UPPER ESOPHAGUS: The visualized upper airway and esophagus are normal. LUNG APICES: The lung apices are clear. THYROID GLAND: The thyroid gland is normal. LYMPH NODES: There is no lymphadenopathy by size criteria. BONES AND SOFT TISSUES: Degenerative changes are noted CTA HEAD: INTRACRANIAL CIRCULATION: There is no aneurysm, vascular malformation, occlusion, or stenosis of the visualized intracranial circulation. The anterior communicating artery complex is clear. Bilateral posterior communicating arteries are identified. VENOUS CIRCULATION: The venous system is unremarkable. PERFUSION: There is no obvious parenchymal perfusion deficit. HEMORRHAGE/INFARCT: There is no hemorrhage or acute infarct. MASSES/SHIFT: There is no mass or shift. EXTRA-AXIAL SPACES: There are no extra-axial fluid collections. SULCI AND VENTRICLES: The sulci and ventricles are normal in size and position for the patient's stated age. CEREBRUM: There is hypoattenuation of the periventricular and subcortical white matter. Again noted is left parietal encephalomalacia consistent with remote infarct BRAINSTEM: There are no focal parenchymal abnormalities. CEREBELLUM: There are no focal parenchymal abnormalities. PARANASAL SINUSES: The paranasal sinuses are clear. ORBITS: The orbits are unremarkable. BONES AND SOFT TISSUE: No bone or soft tissue abnormalities are noted. OTHER: There is no abnormal enhancement. IMPRESSION: 1. ATHEROMATOUS DISEASE. 2. THERE IS SHORT SEGMENT STENOSIS OF THE PROXIMAL LEFT INTERNAL CAROTID ARTERY MEASURING APPROXIMATELY 50% BY NASCET CRITERIA, SIMILAR TO THE PREVIOUS EXAMINATION. THERE IS NO RIGHT INTERNAL CAROTID ARTERY STENOSIS BY NASCET CRITERIA.. 3. NO ANEURYSM, VASCULAR MALFORMATION, OCCLUSION, OR STENOSIS OF THE VISUALIZED INTRACRANIAL CIRCULATION.. 4. AGAIN NOTED IS CHRONIC SMALL VESSEL ISCHEMIC CHANGES WITH LEFT PARIETAL ENCEPHALOMALACIA CONSISTENT WITH REMOTE INFARCT. CPT II Codes: 3100F
[2017-10-19] MEDS ORDERED: Acetaminophen TAB* 325 MG PO PRN (17:45)
[2017-10-19] MEDS ORDERED: Ondansetron INJ* 2 MG/ML VIAL IV PRN (17:45)
--- NOTE | 2017-10-19 20:38 | ED ---
Antonio Arriaga Jennifer, scribed for Nael Swain MD on 10/19/17 at 1440 . Neurological HPI - HPI Summary HPI Summary: The patient is a 72 year old male who was brought in by EMS for feeling strange with a history of two strokes. The first stroke was 15 years ago and the second stroke was 5 years ago with right-sided weakness. He states that beginning at 09 :00 this morning, he felt slightly confused, abnormal, and had slurred speech and tremors. 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 The patient denies headache, chest pain, and abdominal pain. He adds that he hurt his back previously but denies back pain in the ED. - History of Current Complaint Stated Complaint: POSSIBLE CODE SUN Time Seen by Provider: 10/19/17 14:27 Hx Obtained From: Patient Onset/Duration: Sudden Onset, Started hours ago - 5-6 hours ago, Still Present Timing: Constant Onset Severity: Mild Current Severity: Mild Pain Intensity: 0 Pain Scale Used: 0-10 Numeric Character: Other: - slightly confused, slurred speech, tremors Aggravating: Nothing Alleviating: Nothing Associated Signs and Symptoms: Positive: Negative - headache, chest pain, abdominal pain, Confusion, Impaired Speech - Allergy/Home Medications Allergies/Adverse Reactions: Allergies Allergy/AdvReac Type Severity Reaction Status Date / Time No Known Allergies Allergy Verified 10/19/17 14:35 Home Medications: Home Medications Buspirone HCl [Buspirone HCl] 10 mg PO BID 10/19/17 [History Confirmed 10/19/17] Cholecalciferol TAB* [Vitamin D TAB*] 1,000 unit PO DAILY 10/19/17 [History Confirmed 10/19/17] Fluticasone NASAL SPRAY 50MCG* [Flonase NASAL SPRAY 50MCG*] 2 spray BOTH NARES DAILY 10/19/17 [History Confirmed 10/19/17] Memantine HCl/Donepezil HCl [Namzaric 28-10 mg] 1 cap PO DAILY 10/19/17 [ History Confirmed 10/19/17] Metoprolol Succinate XL TAB* [Toprol XL TAB*] 25 mg PO QAM 10/19/17 [History Confirmed 10/19/17] Metoprolol Succinate XL TAB* [Toprol XL TAB*] 50 mg PO BEDTIME 10/19/17 [ History Confirmed 10/19/17] lamoTRIgine TAB(*) [LaMICtal TAB(*)] 250 mg PO BEDTIME 10/19/17 [History Confirmed 10/19/17] PMH/Surg Hx/FS Hx/Imm Hx Endocrine/Hematology History: Denies: Hx Anticoagulant Therapy, Hx Diabetes, Hx Thyroid Disease Comment Only: Hx Blood Disorders - AMYLOIDOSIS Cardiovascular History: Reports: Hx Hypertension Denies: Hx Pacemaker/ICD Respiratory History: Denies: Hx Asthma, Hx Chronic Obstructive Pulmonary Disease (COPD) History: Reports: Hx Benign Prostatic Hyperplasia - HAS TROUBLE INNITIATING, AND HAS ISSUES WITH DRIBBLING Denies: Hx Renal Disease Comment Only: Other Problems/Disorders - RECENTLY BEEN IN TO SEE DR SOMMER. Sensory History: Reports: Hx Contacts or Glasses - READING, NOT WITH PT. Denies: Hx Hearing Aid Opthamlomology History: Reports: Hx Contacts or Glasses - READING, NOT WITH PT. Neurological History: Reports: Hx CVA, Hx Seizures, Hx Transient Ischemic Attacks (TIA) Denies: Hx Dementia Psychiatric History: Denies: Hx Panic Disorder, Hx Substance Abuse Comment Only: Hx Anxiety - PT APPEARS SOME WHAT ANXIOUS ON ADMISSION, ADMITS TO STRESSORS - Surgical History Surgery Procedure, Year, and Place: tonsilectomy Infectious Disease History: No Infectious Disease History: Denies: Hx Hepatitis, Hx Human Immunodeficiency Virus (HIV), Traveled Outside the [place] in Last 30 Days - Family History Known Family History: Positive: Hypertension, Diabetes, Other - Colon Cancer - Social History Alcohol Use: None Hx Substance Use: No Substance Use Type: Reports: None Hx Tobacco Use: No Smoking Status (MU): Never Smoked Tobacco Review of Systems Constitutional: Other - Tremors Negative: Chest Pain Neurological: Other - slight confusion Positive: Slurred Speech. Negative: Headache All Other Systems Reviewed And Are Negative: Yes Physical Exam - Summary Physical Exam Summary: General: well-appearing, no pain distress Skin: warm, color reflects adequate perfusion, dry Head: normal Eyes: EOMI, MADDY ENT: normal Neck: supple, nontender Respiratory: CTA, breath sounds present Cardiovascular: RRR Abdomen: soft, nontender Bowel: present Musculoskeletal: normal, strength/ROM intact Neurological: mild word-finding difficulty, sensory/motor intact, A&O x3 Psychological: affect/mood appropriate Triage Information Reviewed: Yes Vital Signs On Initial Exam: Initial Vitals Temp Pulse Resp BP Pulse Ox 98.3 F 57 19 138/84 94 10/19/17 14:30 10/19/17 14:30 10/19/17 14:30 10/19/17 14:30 10/19/17 14:30 Vital Signs Reviewed: Yes Diagnostics - Vital Signs Vital Signs Temp Pulse Resp BP Pulse Ox 10/19/17 14:30 98.3 F 57 19 138/84 94 - Laboratory Lab Results: Lab Results 10/19/17 10/19/17 10/19/17 Range/Units 14:49 14:49 14:49 WBC 6.4 (3.5-10.8) 10^3/ul RBC 4.66 (4.0-5.4) 10^6/ul Hgb 14.6 (14.0-18.0) g/dl Hct 43 (42-52) % MCV 91 (80-94) fL MCH 31 (27-31) pg MCHC 34 (31-36) g/dl RDW 14 (10.5-15) % Plt Count 308 (150-450) 10^3/ul MPV 7.6 (7.4-10.4) um3 Neut % (Auto) 47.0 (38-83) % Lymph % (Auto) 38.8 (25-47) % [place] % (Auto) 9.0 H (0-7) % Eos % (Auto) 4.0 (0-6) % Baso % (Auto) 1.2 (0-2) % Absolute Neuts (auto) 3.0 (1.5-7.7) 10^3/ul Absolute Lymphs (auto) 2.5 (1.0-4.8) 10^3/ul Absolute Monos (auto) 0.6 (0-0.8) 10^3/ul Absolute Eos (auto) 0.3 (0-0.6) 10^3/ul Absolute Basos (auto) 0.1 (0-0.2) 10^3/ul Absolute Nucleated RBC 0 10^3/ul Nucleated RBC % 0 INR (Anticoag Therapy) 0.90 (0.77-1.02) APTT 32.5 (26.0-36.3) seconds Sodium 133 (133-145) mmol/L Potassium TNP Chloride 96 L (101-111) mmol/L Carbon Dioxide 29 (22-32) mmol/L Anion Gap 8 (2-11) mmol/L BUN 10 (6-24) mg/dL Creatinine 1.14 (0.67-1.17) mg/dL Est GFR ( Amer) 81.4 (>60) Est GFR (Non-Af Amer) 63.3 (>60) BUN/Creatinine Ratio 8.8 (8-20) Glucose 89 (70-100) mg/dL Lactic Acid (0.5-2.0) mmol/L Calcium 10.4 H (8.6-10.3) mg/dL Magnesium 2.2 (1.9-2.7) mg/dL Total Bilirubin 0.50 (0.2-1.0) mg/dL AST TNP ALT 18 (7-52) U/L Alkaline Phosphatase 59 (34-104) U/L Total Creatine Kinase 55 (10-223) U/L CK-MB (CK-2) 2.2 (0.6-6.3) ng/mL Troponin I 0.00 (<0.04) ng/mL C-Reactive Protein < 1.00 (< 5.00) mg/L Total Protein 7.7 (6.4-8.9) g/dL Albumin 4.5 (3.2-5.2) g/dL Globulin 3.2 (2-4) g/dL Albumin/Globulin Ratio 1.4 (1-3) Lipase 137 H (11.0-82.0) U/L TSH 0.25 L (0.34-5.60) mcIU/mL Urine Color Urine Appearance Urine pH (5-9) Ur Specific [place] (1.010-1.030) Urine Protein (Negative) Urine Ketones (Negative) Urine Blood (Negative) Urine Nitrate (Negative) Urine Bilirubin (Negative) Urine Urobilinogen (Negative) Ur Leukocyte Esterase (Negative) Urine Glucose (Negative) 10/19/17 10/19/17 Range/Units 14:49 15:46 WBC (3.5-10.8) 10^3/ul RBC (4.0-5.4) 10^6/ul Hgb (14.0-18.0) g/dl Hct (42-52) % MCV (80-94) fL MCH (27-31) pg MCHC (31-36) g/dl RDW (10.5-15) % Plt Count (150-450) 10^3/ul MPV (7.4-10.4) um3 Neut % (Auto) (38-83) % Lymph % (Auto) (25-47) % [place] % (Auto) (0-7) % Eos % (Auto) (0-6) % Baso % (Auto) (0-2) % Absolute Neuts (auto) (1.5-7.7) 10^3/ul Absolute Lymphs (auto) (1.0-4.8) 10^3/ul Absolute Monos (auto) (0-0.8) 10^3/ul Absolute Eos (auto) (0-0.6) 10^3/ul Absolute Basos (auto) (0-0.2) 10^3/ul Absolute Nucleated RBC 10^3/ul Nucleated RBC % INR (Anticoag Therapy) (0.77-1.02) APTT (26.0-36.3) seconds Sodium (133-145) mmol/L Potassium Chloride (101-111) mmol/L Carbon Dioxide (22-32) mmol/L Anion Gap (2-11) mmol/L BUN (6-24) mg/dL Creatinine (0.67-1.17) mg/dL Est GFR ( Amer) (>60) Est GFR (Non-Af Amer) (>60) BUN/Creatinine Ratio (8-20) Glucose (70-100) mg/dL Lactic Acid 1.1 (0.5-2.0) mmol/L Calcium (8.6-10.3) mg/dL Magnesium (1.9-2.7) mg/dL Total Bilirubin (0.2-1.0) mg/dL AST ALT (7-52) U/L Alkaline Phosphatase (34-104) U/L Total Creatine Kinase (10-223) U/L CK-MB (CK-2) (0.6-6.3) ng/mL Troponin I (<0.04) ng/mL C-Reactive Protein (< 5.00) mg/L Total Protein (6.4-8.9) g/dL Albumin (3.2-5.2) g/dL Globulin (2-4) g/dL Albumin/Globulin Ratio (1-3) Lipase (11.0-82.0) U/L TSH (0.34-5.60) mcIU/mL Urine Color Yellow Urine Appearance Clear Urine pH 7.0 (5-9) Ur Specific [place] 1.010 (1.010-1.030) Urine Protein Negative (Negative) Urine Ketones Negative (Negative) Urine Blood Negative (Negative) Urine Nitrate Negative (Negative) Urine Bilirubin Negative (Negative) Urine Urobilinogen Negative (Negative) Ur Leukocyte Esterase Negative (Negative) Urine Glucose Negative (Negative) Result Diagrams: 10/19/17 14:49 10/19/17 19:08 Lab Statement: Any lab studies that have been ordered have been reviewed, and results considered in the medical decision making process. - Radiology CXR Xray Interpretation: No Acute Changes - NO ACTIVE CARDIOPULMONARY DISEASE. Dr. Swain has reviewed this report. Radiology Interpretation Completed By: Radiologist - CT Brain CT CT Interpretation: No Acute Changes - 1. NO ACUTE INTRACRANIAL PATHOLOGY. 2. CHRONIC SMALL VESSEL ISCHEMIC CHANGE. 3. STABLE LEFT PARIETAL ENCEPHALOMALACIA. 4. CT IS RELATIVELY INSENSITIVE FOR THE DETECTION OF ACUTE ON CHRONIC ISCHEMIA. IF THERE IS PERSISTENT CLINICAL CONCERN FOR ACUTE INFARCT, MRI MAY BE MORE SENSITIVE. Dr. Swain has reviewed this report. CT Interpretation Completed By: Radiologist Head CTA CT Interpretation: No Acute Changes - 1. ATHEROMATOUS DISEASE. 2. THERE IS SHORT SEGMENT STENOSIS OF THE PROXIMAL LEFT INTERNAL CAROTID ARTERY MEASURING APPROXIMATELY 50% BY NASCET CRITERIA, SIMILAR TO THE PREVIOUS EXAMINATION. THERE IS NO RIGHT INTERNAL CAROTID ARTERY STENOSIS BY NASCET CRITERIA.. 3. NO ANEURYSM, VASCULAR MALFORMATION, OCCLUSION, OR STENOSIS OF THE VISUALIZED INTRACRANIAL CIRCULATION.. 4. AGAIN NOTED IS CHRONIC SMALL VESSEL ISCHEMIC CHANGES WITH LEFT PARIETAL ENCEPHALOMALACIA CONSISTENT WITH REMOTE INFARCT. CPT II Codes: 3100F. Dr. Swain has reviewed this report. CT Interpretation Completed By: Radiologist - EKG 14:46 Cardiac Rate: Bradycardia EKG Rhythm: Sinus Bradycardia - [address] Segment: Normal Ectopy: None Course/Dx - Course Course Of Treatment: Medications reviewed. BP noted and advised to follow up with PCP. DR ARREDONDO, NEUROLOGY, SAW THE PATIENT IN THE ED. PATIENT INITIALLY TOLD ME HIS SX STARTED AT 9AM TODAY THEREFORE, NO CODE YATES WAS CALLED. ADMIT HOSPITALIST STABLE. CRITICAL CARE TIME LESS THAN 30 MINUTES. - Diagnoses Provider Diagnoses: HTN (hypertension), TIA (transient ischemic attack) Discharge - Sign-Out/Discharge Documenting (check all that apply): Discharge - ADMIT - Discharge Plan Condition: Stable Disposition: ADMITTED TO [facility] - Billing Disposition and Condition Condition: STABLE Disposition: [facility] [place] The documentation as recorded by the Antonio calderon Jennifer accurately reflects the service I personally performed and the decisions made by me, Nael Swain MD.
--- NOTE | 2017-10-19 20:47 | RAD ---
HISTORY: TIA, slurred speech COMPARISONS: Head CT dated October 19, 2017, head CT dated March 12, 2017., MRI dated August 29, 2016 TECHNIQUE: The following sequences were obtained of the head: Sagittal T1-weighted images, axial T2-weighted images, axial FLAIR images, axial susceptibility weighted images, axial T1-weighted images. Additionally, axial diffusion-weighted images were obtained with calculated apparent diffusion coefficients. FINDINGS: HEMORRHAGE/INFARCT: There is a punctate focus of elevated T1 and T2 signal which may represent subacute hemorrhage in the left parietal lobe further described below. Elsewhere, there is no hemorrhage or acute infarct. Or acute infarct. MASSES/SHIFT: There is no mass or shift. EXTRA-AXIAL SPACES/MENINGES: There are no extra-axial fluid collections. SULCI AND VENTRICLES: The sulci and ventricles are normal in size and position for the patient's stated age. CEREBRUM: There is left parietal encephalomalacia. There is diffusely elevated T2/FLAIR signal within the periventricular and some cortical white matter. There has been interval development of extensive punctate areas of susceptibility artifact throughout the cerebral hemispheres and cerebellum bilaterally. There is dystrophic calcification within the area of the left parietal and septal malacia. There is a punctate focus of elevated T1 and T2 signal within the cortex of the left superior parietal lobule and axial image 24. BRAINSTEM: There are no focal parenchymal abnormalities. CEREBELLUM: There are no focal parenchymal abnormalities. The cerebellar tonsils are normal in size and position. SELLA: The sella is normal. PINEAL: The pineal region is clear. CP ANGLE/TEMPORAL BONES: The labyrinthine structures are grossly normal. VESSELS: Normal flow-voids are noted within the visualized vertebral vasculature. DIFFUSION ABNORMALITIES: Elevated diffusion signal on axial image 24 cm represent artifact. PARANASAL SINUSES/MASTOIDS: The paranasal sinuses are clear. ORBITS: The orbits are unremarkable. BONES AND SOFT TISSUE: No bone or soft tissue abnormalities are noted. OTHER: None IMPRESSION: 1. THERE HAS BEEN INTERVAL DEVELOPMENT OF EXTENSIVE SUSCEPTIBILITY ARTIFACT THROUGHOUT THE CEREBRAL HEMISPHERES BILATERALLY AND CEREBELLUM CONSISTENT WITH CHRONIC MICROHEMORRHAGE. THIS MAY REFLECT MULTIPLE CAVERNOUS ANGIOMAS, WHICH CAN BE SEEN THE SEQUELA OF PREVIOUS WHOLE BRAIN RADIATION. ALTERNATIVELY THIS MAY REPRESENT CHRONIC MICROHEMORRHAGE IN THE SETTING OF CHRONIC UNCONTROLLED HYPERTENSION. AMYLOID ANGIOPATHY IS ALSO WITHIN THE DIFFERENTIAL AND FOR CLINICAL SETTING. 2. THERE IS A PUNCTATE FOCUS OF MORE SUBACUTE HEMORRHAGE WITHIN THE CORTEX OF THE LEFT SUPERIOR PARIETAL LOBULE. THIS CORRESPONDS TO AN AREA OF DYSTROPHIC CALCIFICATION NOTED ON PREVIOUS CT EXAMINATIONS. THIS WOULD FAVOR A CAVERNOUS ANGIOMA. 3. THERE IS A PUNCTATE FOCUS OF RESTRICTED DIFFUSION IN THIS AREA WELL, THOUGH THIS IS FELT TO BE DUE TO ARTIFACT FROM THE ADJACENT BLOOD PRODUCT. AGAIN NOTED IS A LARGE AREA OF ENCEPHALOMALACIA WITHIN THE LEFT ANTERIOR PARIETAL LOBE CONSISTENT WITH REMOTE INFARCT. ELSEWHERE, THERE IS NO RESTRICTED DIFFUSION TO SUGGEST ACUTE INFARCT.
[2017-10-19] MEDS ORDERED: LAMOTRIGINE 200 MG PO SCH (21:00)
[2017-10-19] MEDS ORDERED: lamoTRIgine TAB(*) 25 MG PO SCH (21:00)
[2017-10-19] MEDS ORDERED: LAMOTRIGINE 250 MG PO SCH (21:00)
[2017-10-19] MEDS ORDERED: lamoTRIgine TAB(*) 100 MG PO SCH (21:00)
[2017-10-19] MEDS ORDERED: Metoprolol Succinate XL TAB* 50 MG PO SCH (21:00)
--- NOTE | 2017-10-19 21:10 | CONS ---
CONSULTATION REPORT: DATE OF CONSULT: 10/19/17 PATIENT OF: Dr. Patton, Dr. Swain, Dr. Cooper HISTORY OF PRESENT ILLNESS: This is a 72-year-old man who presents with word finding difficulty and garbled speech beginning at 1 o'clock. His was with him when it started. When he first came to ER, the history was said it had been since 9 in the morning. His is with him now and says he has completely cleared and is back to normal. There was no staring spells or unresponsiveness. With this, there was no weakness. 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 When he came in, there was no weakness when he had his speech difficulties. 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 His Lamictal dose is 200 in the morning and 300 at night and he has had no recent levels. He had a level in December 2015 of 11.2. He also has a history of repeat [employer] hemorrhage is raising the possibility of amyloidosis and he has had some extensive white matter disease on his scans. He has some cognitive issues as well and his MoCA yesterday was . PAST MEDICAL HISTORY: He has a history of hypertension. No history of AFib. MEDICATIONS: Medications at home include: 1. Donepezil. 2. Memantine 1 tab a day. 3. Lamotrigine 200 in the morning, 300 at night. 4. Dyazide 1 cap daily. 5. Vitamin D 1000 units daily. 6. Flonase 2 sprays by mouth daily. 7. Metoprolol 25 in the morning and 50 at night. ALLERGIES: There are no known drug allergies. FAMILY HISTORY: There is a grandmother who had stroke, but no other family history for stroke. REVIEW OF SYSTEMS: Negative in all 14 spheres. His and he say he has made good recovery from his [employer] bleeds and has normal gait. PHYSICAL EXAM: Temperature 98.3, pulse 60, respirations 21, blood pressure 124/ 63. He is alert and oriented x3, naming was intact. He have fluent sentences and his says his speech is normal. Cranial nerves II through XII are intact. Fundi were benign. He had a trace of a right pronator drift, which was not mentioned in Dr. Patton's note from yesterday, but is a minimal finding. Strength is 5/5. Reflexes 2 and equal with downgoing toes. Chest: Clear. Cardiovascular: Regular rate and rhythm without murmur. Abdomen: Soft. Chest: Clear. DIAGNOSTIC STUDIES/LAB DATA: I reviewed his CT scan which showed extensive white matter disease and stable left parietal encephalomalacia. There is a small area of what looked to my eye is calcification in his left parietal lobe. His labs include normal CBC. Normal INR and PTT. Normal chemistries including calcium at 10.4. TSH was low at 0.25. Lipase is 137. UA is not back. IMPRESSION AND PLAN: Mr. Pickard had apparent aphasia that lasted less than 2 hours and he is back to his baseline. He will be admitted for further observation. We will be getting an MRI scan to see if we can see evidence of stroke and we are getting a CTA on him as well. We are going to increase his Lamictal by 50 mg for now and will be checking EEG. I will have call to Dr. Patton. Thank you for sharing his case. [id number]/CPS #: [id number] [facility]FFEE HOSPITALStarla
[2017-10-19] MEDS: busPIRone TAB* 10 MG PO SCH (21:20)
--- NOTE | 2017-10-19 21:53 | HP ---
CC: Dr. Cooper; Dr. Castillo * HISTORY AND PHYSICAL: DATE OF ADMISSION: 10/19/17 PRIMARY CARE PROVIDER: Dr. Cooper. ATTENDING PHYSICIAN WHILE IN THE HOSPITAL: Dr. Debbie Webster * (report dictated by Nick Dick NP). CONSULTING NEUROLOGIST: Dr. Castillo. CHIEF COMPLAINT: Difficulty with speech. HISTORY OF PRESENT ILLNESS: Mr. Pickard is a 72-year-old male patient. He does carry a history of mild dementia, hyperlipidemia, hypertension, TIA, and amyloid angiopathy, history of intracranial hemorrhages x3, occipital hemorrhage , and history of nephrolithiasis, comes into our ER today stating that the noted that around 1 o'clock today, the patient does have trouble with short- term memory. The says around 1 o'clock today, he came up to her, called her name out. She was in the computer room. She noted that he said that he just does not feel right. He did not elaborate on this. I asked him if he had felt dizzy or if he felt like he was going to faint. He denied this. The noted that his speech appeared to be off. It was slurred and mumbled at times. She was concerned given his history and immediately called 911. There was no worsening weakness to the right side and no weakness to the left side. No facial drooping. The says that he may have had trouble finding his words. There have been no reports of vomiting or diarrhea. He does state that he recently is overcoming a URI, which he is no longer coughing. There have been no report of fevers. There is no seizure activity reported. No loss of consciousness was reported as well. The patient came into the ED. By the time he got to the ER, he still had some trouble with slurred speech, but actually he was back to his baseline and there was concern for possible TIA and we were asked to evaluate for admission. PAST MEDICAL HISTORY: Significant for: 1. Hypertension. 2. Nephrolithiasis. 3. Hyperlipidemia. 4. Amyloid angiopathy. 5. Intracranial hemorrhage x3. 6. Occipital hemorrhage. 7. TIA. PAST SURGICAL HISTORY: Denied. FAMILY HISTORY: Mother had a history of cancer. Father had a history of heart disease. SOCIAL HISTORY: He is a former smoker. He ..... REVIEW OF SYSTEMS: There is no documented fever. He denied any significant weight change. There was no double vision. There is no ear discharge. He denies having any rhinorrhea. There is no sore throat. No thyroid enlargement. Denied having any chest pain. There is no orthopnea, there is no nocturnal dyspnea. He denied having abdominal pain. There was no nausea, no vomiting. No dysuria, no frequency. There was no seizure, no loss of consciousness. No pruritus and no skin ulcerations. Review of 14 systems completed, all others negative. DICTATION ENDS ABRUPTLY NICK DICK, BHUPENDRA [id number]/CPS #: [id number] SONYA
--- NOTE | 2017-10-19 22:20 | HP ---
CC: Dr. Cooper; Dr. Castillo * HISTORY AND PHYSICAL: DATE OF ADMISSION: 10/19/17 PRIMARY CARE PROVIDER: Dr. Cooper. CONSULTING NEUROLOGIST: Dr. Castillo. ATTENDING PHYSICIAN WHILE IN THE HOSPITAL: Dr. Webster * (report dictated by Tre Dick NP). CHIEF COMPLAINT: Difficulty with speech. HISTORY OF PRESENTING ILLNESS: Mr. Pickard is a 72-year-old male patient who carries a history of hyperlipidemia, nephrolithiasis, hypertension, amyloid angiopathy, history of intracranial hemorrhage x3, occipital hemorrhage, history of TIA. He comes into the ER today stating that around 1300 today, he tells me he is not the best historian. He has a history of dementia with short- term memory loss, but the who is with him says she noticed from 1 o'clock today, he called out her name that something was wrong. She came to see what was going on and she noted that he was really nonspecific, but he says he just did not feel right, did not feel right and she noted that he was having trouble with his speech, it appeared to be slurred. His words were incomprehensible at times. There were no reports of a facial droop, no reports of a worsening weakness to left or the right side. 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 He said he specifically denied feeling nausea, denied feeling lightheaded, denied feeling any fevers or chills recently. No recent diarrhea or vomiting and no recent change in medications. The immediately was concerned because of the speech, she called 911, and he was brought into the hospital. Shortly after arriving in the hospital, his symptoms had completely resolved but because of his history and concern for TIA, we were asked to evaluate for admission. PAST MEDICAL HISTORY: Significant for: 1. Hyperlipidemia. 2. Nephrolithiasis. 3. Hypertension. 4. Amyloid angiopathy. 5. Intracranial hemorrhage. 6. Occipital hemorrhage. 7. History of TIA. PAST SURGICAL HISTORY: Denied. HOME MEDICATIONS: Include: 1. BuSpar 10 mg p.o. b.i.d. 2. Metoprolol XL 50 mg at bedtime, 25 mg in the morning. 3. Flonase 2 sprays both nares daily. 4. Vitamin D 1000 units p.o. daily. 5. Dyazide 1 capsule p.o. daily. 6. Lamictal 250 mg at bedtime and 200 mg in the morning. 7. Namzaric 1 capsule p.o. daily. ALLERGIES TO MEDICATIONS: Include no known drug allergies. FAMILY HISTORY: Mother had a history of cancer. Father had a history of heart disease. SOCIAL HISTORY: He is a former smoker. He does not drink alcohol. Surrogate decision maker is his . REVIEW OF SYSTEMS: There is no documented fever. He denied having any significant weight change. There was no double vision. There was no ear discharge. He denies having any rhinorrhea. No sore throat. No thyroid enlargement. Denies having any chest pain. There was no orthopnea. No nocturnal dyspnea. There was no abdominal pain. No nausea, no vomiting. No dysuria, no frequency. No seizure, no loss of consciousness. No pruritus and no skin ulcerations. Review of 14 systems completed, all others negative. PHYSICAL EXAMINATION GENERAL: At this time, Mr. Pickard is a 72-year-old male patient; he is sitting in the ED stretcher. He does not appear to be in any acute distress. VITAL SIGNS: Blood pressure 136/65, pulse is 62, respirations are 12, O2 sat 95 %, temperature 98.3. HEENT: Head is atraumatic and normocephalic. Eyes: EOMs are intact. Sclerae were anicteric and not pale. Throat: Oral mucosa appears to be moist. No oropharyngeal erythema. NECK: Supple. LUNGS: Clear to auscultation bilaterally. No wheezes, rales, or rhonchi. HEART: Sounds S1, S2. Regular rate and rhythm. No murmurs, rubs, or gallops. ABDOMEN: Soft, it was flat, nontender. Bowel sounds were present. EXTREMITIES: Pulses were 2+ throughout. He is moving all 4 extremities with 5/ 5 strength. NEUROLOGICAL: He is awake, he is alert. He is confused to year, he thinks it is 2016. He knows he is in the hospital, he knows his name. His speech was clear at this point. Tongue midline. Contact Officer were equal. [id number] intact bilaterally. He had a little bit trouble on the right side, little bit of limb ataxia and on the right eye as well, he did have a little bit of a visual field cut but according to the , this is his baseline from his stroke. There was no again facial drooping. [id number] was actually intact bilaterally. He had no other gross focal deficits. SKIN: Intact. LABORATORY DATA/DIAGNOSTIC STUDIES: WBC 6.4, RBC of 4.66, hemoglobin of 14.6, hematocrit of 43, and a platelet count of 308. The INR was 0.90, the PTT was 32.5. The sodium was 135, potassium pending, chloride 96, bicarb 29, BUN 10, creatinine 1.14, glucose 89, lactic 1.1, calcium 10.4, mag was 2.2. AST 15, ALT 18, alk phos 59. CK 55, CK-MB 2.2, troponin 0, CRP less than 1. Albumin 4.5. TSH was low at 0.25. Lipase of 137. Urine was obtained, it was negative. Multiple imaging in the ED: 1. He had a brain CT, showed no acute intracranial pathology, chronic small vessel ischemic change, stable left parietal encephalomalacia. CT is relatively insensitive for detection of acute on chronic ischemia. If there is persistent clinical concern for acute infarct, MRI would be more sensitive. 2. Chest x-ray obtained today as well, which revealed no active cardiopulmonary disease. 3. He did have CTA of the head and neck, which revealed atheromatous disease. There is short-segment stenosis of the proximal left internal carotid measuring approximately 50% by NASCET criteria similar to previous examination. No right internal carotid artery stenosis by NASCET criteria. No aneurysm, vascular malformation, occlusion, or stenosis was of the visualized intracranial circulation. 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 Old medical records were reviewed. ASSESSMENT AND PLAN: Mr. Pickard is a 72-year-old male patient coming into the ED today with complaints of difficulty with speech. We were asked to evaluate for admission for possible transient ischemic attack. He will be admitted under observation status for: 1. Transient ischemic attack. At this point, Dr. Castillo did evaluate the patient. We will go ahead and check his MRI of the brain, echo with bubble study. I am not going to put him on aspirin because of the history of amyloid angiopathy and we will monitor him on telemetry, continue with neuro checks every 2 hours, check lipids and A1c in the morning. 2. Elevated lipase. Etiology is unclear. He is not having any abdominal pain. There has been no nausea or vomiting. I will repeat these labs in the morning. Should he have abdominal pain, then I would make him n.p.o. with IV fluids, but etiology is unclear. 3. Low TSH. I am going to add on a T3 and T4 as well. He may need to follow this up with his primary or we could consider Endocrinology consult. 4. Hyperlipidemia. Continue with his current medical regimen. Lipid panel will be checked in the morning. 5. History of hypertension. In the setting of acute possible transient ischemic attack, I will hold his Dyazide. I will continue his beta-blockers for now. 6. History of amyloid angiopathy. Follow up with his PCP. 7. History of intracranial hemorrhage. He does not appear to have hemorrhage at this point and because of this, we will be holding on any blood thinners. 8. DVT prophylaxis. SCDs has been ordered. 9. History of dementia. Continue with supportive care and medications as prescribed. 10. Fluids, electrolytes, and nutrition. He can have a heart healthy diet. TIME SPENT: Time spent on the admission was 60 minutes; greater than half the time was spent [id number] with the patient obtaining my history and physical, other half time was spent going over the plan of care with the patient and implementing the plan of care. I did discuss the plan of care with my attending physician, Dr. Webster, she is in agreement. TRE DICK NP [id number]/[facility] #: [id number] SONYA
[2017-10-20 05:32] LABS: ABS Basophils 0.1 10^3/ul (0-0.2); ABS Eosinophils 0.3 10^3/ul (0-0.6); ABS Lymphocytes 2.6 10^3/ul (1.0-4.8); ABS Monocytes 0.6 10^3/ul (0-0.8); ABS Neutrophils 2.9 10^3/ul (1.5-7.7); ABS Nucleated RBC 0 10^3/ul; Eosinophil % 4.4 % (0-6); Hematocrit 39 % (42-52); Hemoglobin 13.2 g/dl (14.0-18.0); Lymphocyte % 40.7 % (25-47); Mean Corpuscular HGB Conc 34 g/dl (31-36); Mean Corpuscular Hemoglobin 31 pg (27-31); Mean Corpuscular Volume 92 fL (80-94); Mean Platelet Volume 7.7 um3 (7.4-10.4); Nucleated Red Blood Cells % 0.1; Platelet Count 269 10^3/ul (150-450); Red Blood Count 4.26 10^6/ul (4.0-5.4); Red Cell Distribution Width 14 % (10.5-15); White Blood Count 6.4 10^3/ul (3.5-10.8)
[2017-10-20 05:35] LABS: INR 0.93 (0.77-1.02)
[2017-10-20 05:49] LABS: EGFR Non-African American 63.3 (>60)
[2017-10-20] MEDS ORDERED: MEMANTINE HCL PO SCH (09:00)
[2017-10-20] MEDS ORDERED: DONEPEZIL HCL PO SCH (09:00)
[2017-10-20] MEDS ORDERED: LAMOTRIGINE 200 MG PO SCH (09:00)
[2017-10-20] MEDS ORDERED: Metoprolol Succinate XL TAB* 25 MG PO SCH (09:00)
[2017-10-20] MEDS ORDERED: Memantine XR CAP* 28 MG CAP.XR PO SCH (09:00)
[2017-10-20] MEDS ORDERED: Donepezil TAB* 5 MG PO SCH (09:00)
[2017-10-20] MEDS: busPIRone TAB* 10 MG PO SCH (09:14)
--- NOTE | 2017-10-20 14:40 | ECHO ---
Patient: BERNARDINO MANUEL [facility] Rec#: [id number] : 1945 Date: 10/20/2017 Age: 72y Height: 175.26 cm / 69.0 in Weight: 76.2 kg / 167.9 lbs Sex: M BSA: 1.92 Room#: 436 Admit Date#: 10/19/2017 Type: Inpatient Referring: Nick Dick NP Reading: Saw Deluca MD Cashier Receptionist: Roberta Tolliver RDCS,RDMS CC: Elvia Cooper MD Transthoracic Echocardiogram Indication: TIA BP: 120/60 HR: 58 Rhythm: Bradycardia Findings History: HTN, HLD, PFO,intraranial hemorrhage Technical Comments: The study quality is good. Left Ventricle: The left ventricular chamber size is normal. There is increased basal septal hypertrophy noted without evidence of an increased gradient across the left ventricular outflow tract. The estimated ejection fraction is 55-60%. Sigmoid septum. There is an E to A reversal in the mitral valve flow pattern suggestive of diastolic dysfunction.Grade 1 diastolic dysfunction. Left Atrium: The left atrium is slightly dilated. Right Ventricle: The right ventricular chamber size and systolic function are within normal limits. Right Atrium: The right atrial cavity size is normal. Aortic Valve: The aortic valve is trileaflet. The aortic valve leaflets are mildly thickened. There is no evidence of aortic regurgitation. There is no evidence of aortic stenosis. Mitral Valve: The mitral valve leaflets are mildly thickened. There is mild mitral regurgitation. There is no evidence of mitral stenosis. Tricuspid Valve: The tricuspid valve leaflets are normal. There is trace tricuspid regurgitation. No pulmonary hypertension is noted. Pulmonic Valve: The pulmonic valve appears normal. There is a trace pulmonic regurgitation. Pericardium: There is no significant pericardial effusion. Aorta: The aortic root appears normal. There is no dilatation of the aortic arch. There is plaque visualized in the transverse aorta. Pulmonary Artery: The main pulmonary artery appears normal. Venous: The inferior vena cava appears normal in size. There is a greater than 50% respiratory change in the inferior vena cava dimension. Conclusions The estimated ejection fraction is 55-60%. Sigmoid septum. There is an E to A reversal in the mitral valve flow pattern suggestive of diastolic dysfunction. Grade 1 diastolic dysfunction. The left atrium is slightly dilated. The aortic valve leaflets are mildly thickened. There is mild mitral regurgitation. There is trace tricuspid regurgitation. There is plaque visualized in the transverse aorta. Similar to 07/2016 Measurements Name Value Normal Range RVIDd (AP) 2D 2.6 cm (0.9 - 2.6) RVDdMajor (2D) 2.7 cm (2.2 - 4.4) RAd ISD 4CH 4.6 cm (3.4 - 4.9) RA (A4C)W 4.1 cm (2.9 - 4.6) IVSd (2D) 1.4 cm (0.6 - 1) LVPWd (2D) 0.9 cm (0.6 - 1) LVIDd (2D) 4.6 cm (3.6 - 5.4) LVIDs (2D) 3.2 cm - LV FS (2D) 30 % (25 - 45) Aortic Annulus 2.3 cm (1.4 - 2.6) Ao root diameter (2D) 3.2 cm (2.1 - 3.5) Ascending Ao 2.9 cm (2.1 - 3.4) Aortic arch 2.4 cm (1.8 - 3.4) LA dimension (AP) 2D 4 cm (2.3 - 3.8) LAd ISD 4CH 5.6 cm (2.9 - 5.3) LA ISD 4CH W 3.9 cm (2.5 - 4.5) Name Value Normal Range LA ESV SP 4CH (A/L) 51.12 ml - LA ESV SP 2CH (A/L) 57.01 ml - LA ESV BP (A/L) 57.91 ml - LA ESV BP (A/L) index 30 ml/m2 - LA ESV SP 4CH (MOD) 48.08 ml - LA ESV SP 2CH (MOD) 52.77 ml - Name Value Normal Range MV E-wave Vmax 0.7 m/sec - MV deceleration time 175 msec - MV A-wave Vmax 0.8 m/sec - MV E:A ratio 0.9 ratio - LV septal e' Vmax 0.05 m/sec - LV lateral e' Vmax 0.05 m/sec - LV E:e' septal ratio 13 ratio - LV E:e' lateral ratio 13 ratio - Name Value Normal Range AV Vmax 1 m/sec - AV VTI 20.2 cm - AV peak gradient 4 mmHg - AV mean gradient 1.7 mmHg - LVOT Vmax 0.8 m/sec - LVOT VTI 17.2 cm - LVOT peak gradient 2.6 mmHg - LVOT mean gradient 1.2 mmHg - MARCI Vmax 0.5 m/sec - Name Value Normal Range TR Vmax 2.4 m/sec - TR peak gradient 23 mmHg - RAP 3 mmHg - RVSP 26 mmHg - IVC diameter 2 cm - Name Value Normal Range PV Vmax 0.7 m/sec - PV peak gradient 2 mmHg -
[2017-10-20 17:12] VITALS: BP 134/66
--- NOTE | 2017-10-21 04:15 | PN ---
NEUROLOGICAL FOLLOWUP NOTE: DATE OF SERVICE: 10/20/17 PATIENT OF: Dr. Patton and Dr. Cooper and Svetlana Underwood, BHUPENDRA HISTORY: He had no return of his word findings difficulties or garbled speech. There has been no further staring spells. His medications are unchanged. I would repeat the recommendation to Svetlana Underwood to increase the Lamictal to 250 in the morning and 300 at night. PHYSICAL EXAMINATION: On exam, temperature 98.7, pulse 65, respiratory rate 20 , blood pressure 124/66. He is alert and oriented with normal speech and comprehension. Cranial nerves II through XII were intact. Motor exam revealed normal tone, strength and coordination. Chest: Clear. Cardiovascular: Regular rate and rhythm. Abdomen: Soft with positive bowel sounds. LABORATORY DATA/DIAGNOSTIC DATA: Hematocrit is 39 today. Normal CMP. His LDL was 122. His MRI scan was reviewed and shows significant microhemorrhage most likely related to his probable amyloid angiopathy. He continues to have his old encephalomalacia as well. IMPRESSION AND PLAN: I discussed with the patient that he continues to have changes from his underlying process and that may have caused his speech problems. I have spoken to Svetlana Underwood who will be increasing the Lamictal and Dr. Patton is aware of the MRI scan findings and will be speaking to her later. I am having Mr. Pickard call the office on Monday and then set up an appointment as per Dr. Patton's preferences. [id number]/[facility] #: [id number] MTDD
--- NOTE | 2017-10-21 16:33 | HP ---
Review of Systems - Medications/Allergies Allergies/Adverse Reactions: Allergies Allergy/AdvReac Type Severity Reaction Status Date / Time No Known Allergies Allergy Verified 10/19/17 14:35 Exam - Exam Vital Signs: Vital Signs (72 hours) 10/19/17 10/19/17 10/19/17 18:00 18:30 22:24 Temperature 98.6 F Pulse Rate 63 61 62 Respiratory 15 21 16 Rate Blood Pressure 124/66 127/72 114/76 (mmHg) O2 Sat by Pulse 93 95 95 Oximetry 10/20/17 10/20/17 10/20/17 00:04 03:55 08:00 Temperature 97.6 F 98.4 F Pulse Rate 58 56 Respiratory 16 16 16 Rate Blood Pressure 117/61 120/60 (mmHg) O2 Sat by Pulse 94 96 Oximetry 10/20/17 10/20/17 10/20/17 08:11 11:21 15:41 Temperature 98.3 F 98.7 F 98.4 F Pulse Rate 59 55 59 Respiratory 20 20 20 Rate Blood Pressure 125/70 124/66 134/66 (mmHg) O2 Sat by Pulse 96 96 96 Oximetry
--- NOTE | 2017-10-22 06:12 | DS ---
DISCHARGE SUMMARY: DATE OF ADMISSION: 10/19/17 DATE OF DISCHARGE: 10/20/17 ATTENDING PHYSICIAN: Dr. Silvio Cabrales * (dictated by Alonso Underwood NP). PRIMARY CARE PROVIDER: Dr. Cooper. PRIMARY DIAGNOSIS: Transient ischemic attack. SECONDARY DIAGNOSES: 1. Hyperlipidemia. 2. Nephrolithiasis. 3. Hypertension. 4. Amyloid angiopathy. 5. Intracranial hemorrhage. 6. Occipital hemorrhage. 7. History of transient ischemic attack. STUDIES COMPLETED WHILE IN THE HOSPITAL: He had a CT of the brain on 10/19/17, radiologist's impression: 1. No acute intracranial pathology. 2. Chronic small vessel ischemic changes. 3. Stable left parietal encephalomalacia. 4. CT is relatively insensitive for the detection of acute on chronic ischemia. If there is persistent clinical concern for infarct, MRI would be more sensitive. Chest x-ray on 10/19/17, radiologist's impression: No active cardiopulmonary disease. Electrocardiogram on 10/19/17 showed sinus bradycardia at a rate of 56. CT of the head on 10/19/17, radiologist's impression: 1. 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 2. There is a short segment stenosis of the proximal left internal carotid artery measuring approximately 50% by NASCET criteria. Similar to the previous examination, there is no right internal carotid artery stenosis by NASCET criteria. 3. No aneurysm, vascular malformation, occlusion, or stenosis of the visualized intracranial circulation. 4. Again noted is chronic small vessel ischemic changes with left parietal encephalomalacia consistent with a remote infarct. He also had an MRI of the brain on 10/19/17, radiologist's impression: 1. There have been interval development of extensive susceptibility artifact throughout the cerebral hemispheres bilaterally and the cerebellum consistent with chronic microhemorrhage, this may reflect multiple cavernous angiomas, which have been seen as the sequelae of previous whole brain radiation. Alternatively, this may represent chronic microhemorrhages in the setting of chronic uncontrolled hypertension. Amyloid angiopathy is also within the differential and for clinical setting. 2. There is a punctate focus of more subacute hemorrhage within the cortex of the left superior parietal lobe. This corresponds to the area of the stroke, but calcification noted on the previous CT exam. This would favor a cavernous angioma. 3. There is punctate focus of restricted diffusion in the area as well, though this is felt to be due to artifact from adjacent blood product, again noted as a large area of encephalomalacia within the left anterior parietal lobe consistent with a remote infarct. Elsewhere, there is no restricted diffusion to suggest acute infarct. He also had a transthoracic echocardiogram on , conclusion: Estimated ejection fraction was 55% to 60% sigmoid septum. There is an A to E reversal in the mitral valve flow pattern suggestive of grade 1 diastolic dysfunction. Left atrium is slightly dilated. The aortic valve leaflets are mildly thickened. There is a mild mitral regurgitation. There is trace tricuspid regurgitation. There is a plaque visualized in the transverse aorta similar to one of 2017. DISCHARGE MEDICATIONS: Lamictal will be increased to 250 mg p.o. q.a.m. and 300 mg p.o. q.p.m. Continued home medications: 1. Buspirone 10 mg p.o. b.i.d. 2. Metoprolol XL 50 mg p.o. at bedtime. 3. Metoprolol succinate 25 mg p.o. q.a.m. 4. Flonase nasal spray 2 sprays both nares daily. 5. Vitamin D 1000 units p.o. daily. 6. Dyazide cap 1 cap p.o. daily. 7. Namzaric 28 mg/10 one p.o. daily. HISTORY OF PRESENT ILLNESS AND HOSPITAL COURSE: Mr. Pickard is a 72-year-old male who carries a history of hyperlipidemia, nephrolithiasis, hypertension, amyloid angiopathy, history of intracranial hemorrhage x3, occipital hemorrhage , and history of TIA. He comes to the emergency room on 10/19/17, stating that around 1300 that day that he called out his 's name saying that there was something wrong. She came to check on him, states he was really not specific, he just said he did not feel right and he was having trouble with his speech, it appeared to be slurred. His words were incomprehensible at times. There was no report of facial droop, no report of worsening weakness on the left side or the right side. He had baseline weakness on the right from previous infarct. While in the emergency room, he was placed on the monitor and monitored. He had several exams done including a CT of the head, CTA of the head and neck, and an MRI, which are noted above. His symptoms resolved while in the emergency room. His speech returned to baseline. He had no further complaints. He was admitted to the hospital for observation overnight. While in the hospital, he was continued to be monitored on telemetry. He had no residual deficits. His speech was clear. He had no complaints of headache. Denied chest pain or shortness of breath. Denied any dizziness. Denied any visual changes. The patient did receive a transthoracic echocardiogram on 10/20, which was similar to an exam of one of 2017. The patient was seen in consultation by Dr. Castillo. For further details of that consultation, please see the consultation note from Dr. Castillo. In short, Dr. Castillo discussed with the patient that he continues to have changes from his underlying process that may have caused his speech problem. He felt that these were related to his probable amyloid angiopathy and he continues to have an old encephalomalacia as well. The patient and his findings were reviewed with them and at this time, he is stable for discharge. Mr. Pickard will be discharged home today. REVIEW OF SYSTEMS: He denies any nausea or vomiting. Denies any chest pain. Denies any shortness of breath. Denies any dizziness. Denies any visual disturbance. Denies any weakness. Denies any urinary frequency or urgency or dysuria. Denies any slurred speech. PHYSICAL EXAMINATION: Vital signs are as follows: Temperature was 98.4, heart rate was 59, respirations were 20, O2 saturation was 96%, blood pressure 134/ 66. General: Mr. Pickard is alert and oriented x3. He is sitting in the bed. He appears to be comfortable. He is cooperative. He is in no acute distress, sitting in the bed. HEENT: Head is atraumatic. Pupils are equal and reactive to light. Extraocular eye movements are intact. Mucous membranes are pink and moist. Lungs: Clear to auscultation bilaterally with symmetrical rise of the chest. Cardiovascular: Regular rate and rhythm. Normal S1 and S2. No murmurs , rubs, or gallops. Abdomen is soft and nontender. Bowel sounds are positive x4. Extremities: There is no clubbing or cyanosis, no edema. Pulses are within normal limits. Skin: No rashes or lesions. Neurologic: He has got normal speech. Cranial nerves III through XII are within normal limits. Sensation is intact. His tongue is midline. He does have a fine tremor noted to the right hand when extended forward. Hand health insurance adjuster are equal. Upper extremity arm strength is equal. Lower extremities 5/5. Psych and mental status : He has got a normal mood. He is pleasant and calm at this time. His speech is clear. DISCHARGE PLAN: Mr. Pickard will be discharged back home today. 1. Activity as tolerated. 2. He should continue a heart healthy diet. 3. In regards to a TIA, his symptoms have resolved. He should follow up with Dr. Patton. He should call for an appointment on Monday. His Lamictal was increased to 250 mg p.o. q.a.m. and 300 mg p.o. q.p.m. FOLLOWUP: The patient was instructed to call his primary care provider for a followup appointment. He was also instructed to follow up with Dr. Patton and call for an appointment on Monday. The patient and his verbalized understanding. This is a summarization of his hospitalization. For further details, please see the entire medical record. TIME SPENT: Time spent on this discharge was approximately 60 minutes, greater than half of that time was spent with the patient discussing discharge plans and instructions. CONDITION ON DISCHARGE: Stable. This discharge plan was reviewed with Dr. Cabrales and he is in agreement with my plan. ALONSO UNDERWOOD NP [id number]/[facility] [place] #: [id number] SONYA
== END 2017-10-20 18:23 | disposition home or self-care (01) ==
LOC: ED 14:20 → MEDTELE 17:41
PROVIDERS: ADMIT Internal Medicine; ATTEND Internal Medicine
DX: G45.9 Transient cerebral ischemic attack, unspecified (principal); E78.5 Hyperlipidemia, unspecified; I10 Essential (primary) hypertension; I99.8 Other disorder of circulatory system; Z86.73 Personal history of transient ischemic attack (TIA), and cerebral infarction without residual deficits; I65.21 Occlusion and stenosis of right carotid artery; Z79.899 Other long term (current) drug therapy; Z87.891 Personal history of nicotine dependence
CPT/HCPCS: 36415; 70450; 70496; 70498; 70551; 71045; 80048; 80053; 80061; 81003; 82550; 82553; 83036; 83605; 83690; 83735; 84436; 84439; 84443; 84479; 84481; 84484; 85025; 85610; 85730; 86140; 93005; 93306; 99284; A9270-GY; G0378; Q9967